=== PATIENT | female | born 1955 | race Hispanic/Latino ===

== ENCOUNTER → 2017-09-14 | Outpatient (CLI) | payer OTHER ==
[~2017-09-14] MED LIST: ALPR2TAB7 PO; ATOR40TA71 PO; CROM40SP12 NS; EZET10TA26 PO; GABA-318 PO; LISI1TAB9 PO; LORA10CA9 PO; MECL-111 PO; METO-391 PO; OXYB10TA4 PO; PARO-37 PO; TRAM50TA4 PO; VITA400C70 PO
== END | disposition home or self-care (01) ==
LOC: SHCH 09:11
PROVIDERS: ATTEND Internal Medicine Cardiovascular Disease
DX: R07.9 Chest pain, unspecified (principal)
CPT/HCPCS: 93306

== ENCOUNTER → 2017-09-19 | Outpatient (CLI) | payer OTHER ==
[~2017-09-19] MED LIST changes: +REGADENOSON 0.4 MG/5 ML PF SYG IVP SCH
== END | disposition home or self-care (01) ==
LOC: SHCH 09:21
PROVIDERS: ATTEND Internal Medicine Cardiovascular Disease
DX: R07.9 Chest pain, unspecified (principal); R05 Cough
CPT/HCPCS: 78452; 93017; 96374; A9500 ×2; J2785

== ENCOUNTER → 2017-09-27 | Outpatient (CLI) | payer OTHER ==
[~2017-09-27] MED LIST changes: -REGADENOSON 0.4 MG/5 ML PF SYG IVP SCH
== END | disposition home or self-care (01) ==
LOC: SHCH 14:06
PROVIDERS: ATTEND Internal Medicine Cardiovascular Disease
DX: R09.89 Other specified symptoms and signs involving the circulatory and respiratory systems (principal)
CPT/HCPCS: 93880

== ENCOUNTER 2018-02-19 12:15 | Emergency (ER) | payer OTHER ==
[2018-02-19 12:44] LABS: APPEARANCE,URINE Clear (CLEAR); BILIRUBIN,URINE Negative (NEGATIVE); COLOR,URINE Yellow (YELLOW); GLUCOSE, URINE (UA) Negative (NEGATIVE); KETONES,URINE Negative (NEGATIVE); LEUKOCYTE ESTERASE ,URINE Negative (NEGATIVE); NITRATE,URINE Negative (NEGATIVE); OCCULT BLOOD,URINE Negative (NEGATIVE); PROTEIN,URINE Negative (NEGATIVE); UROBILINOGEN,URINE 0.2 mg/dL (0.2-1.0)
[2018-02-19] MEDS ORDERED: DIPHENHYDRAMINE HCL 25 MG CAPSULE ONE (12:47)
[2018-02-19 12:52] LABS: AMPHET/METH SCREEN,URINE NEGATIVE (NEGATIVE); BARBITURATE SCREEN, URINE NEGATIVE (NEGATIVE); BENZODIAZEPINES SCREEN,URINE POSITIVE (NEGATIVE); CANNABINOID SCREEN,URINE NEGATIVE (NEGATIVE); COCAINE SCREEN,URINE NEGATIVE (NEGATIVE); OPIATE SCREEN,URINE NEGATIVE (NEGATIVE); PHENCYCLIDINE SCREEN,URINE NEGATIVE (NEGATIVE)
== END 2018-02-19 15:34 | disposition home or self-care (01) ==
LOC: EDH 12:15
DX: F41.1 Generalized anxiety disorder (principal); I10 Essential (primary) hypertension; M81.0 Age-related osteoporosis without current pathological fracture; Z79.899 Other long term (current) drug therapy
CPT/HCPCS: 80305; 81003; 99284; Q0163

== ENCOUNTER 2019-03-03 04:14 | Emergency (ER) | payer OTHER ==
[~2019-03-03 04:14] MED LIST changes: -EZET10TA26 PO; +EZET10TA48 PO; -GABA-318 PO; +GABA600T10 PO
[2019-03-03 04:46] LABS: BASOPHILS % (AUTO) 0.3 % (0.0-5.0); EOSINOPHILS % (AUTO) 3.4 % (0.0-8.0); HEMATOCRIT 36.8 % (36-48); LYMPHOCYTES % (AUTO) 9.8 % (21.0-51.0); MEAN CORPUSCULAR HEMOGLOBIN 29.1 pg (27.0-33.0); MEAN CORPUSCULAR HGB CONC 33.3 g/dL (32.0-36.0); MEAN CORPUSCULAR VOLUME 87.5 fL (79-99); NEUTROPHILS % (AUTO) 80.5 % (40.0-77.0); PLATELET COUNT (AUTO) 244 K/uL (130-400); RED BLOOD CELL COUNT(AUTO) 4.21 MIL/uL (4.00-5.50); WHITE BLOOD COUNT (AUTO) 12.4 K/uL (4.8-10.8)
[2019-03-03 04:59] LABS: CREATININE 0.6 mg/dL (0.5-1.5)
[2019-03-03 05:04] LABS: ALBUMIN 3.3 g/dL (3.5-5.0); BILIRUBIN,TOTAL 0.3 mg/dL (0.2-1.0); TOTAL PROTEIN, SERUM 6.8 g/dL (6.0-8.3)
[2019-03-03 05:14] LABS: APPEARANCE,URINE Clear (CLEAR); BILIRUBIN,URINE Negative (NEGATIVE); COLOR,URINE Yellow (YELLOW); GLUCOSE, URINE (UA) Negative (NEGATIVE); KETONES,URINE Trace mg/dL (NEGATIVE); LEUKOCYTE ESTERASE ,URINE Trace (NEGATIVE); NITRATE,URINE Negative (NEGATIVE); OCCULT BLOOD,URINE Negative (NEGATIVE); PH,URINE 8.5 (5.0-8.0); PROTEIN,URINE Negative (NEGATIVE)
[2019-03-03 05:44] LABS: BACTERIA,URINE Rare /HPF (None Seen); RBC,URINE 0-1 /HPF (0-1); SQUAMOUS EPITHELIAL CELL,UR 0-2 /HPF (0-2)
[2019-03-03] MEDS ORDERED: DEXAMETHASONE SOD PHOSPHATE 4 MG/ML 1ML VIAL ONE (06:07)
[2019-03-03] MEDS ORDERED: KETOROLAC TROMETHAMINE 30MG/ML ONE (06:07)
== END 2019-03-03 07:02 | disposition home or self-care (01) ==
LOC: EDH 04:14
DX: M13.88 Other specified arthritis, other site (principal); M25.50 Pain in unspecified joint; I10 Essential (primary) hypertension
CPT/HCPCS: 36415; 80053; 81001; 85025; 85651; 86140; 96374; 96375; 99284; J1100; J1885

== ENCOUNTER → 2019-11-08 | Outpatient (CLI) | payer OTHER ==
[~2019-11-08] MED LIST changes: +LISI1TAB32 PO; -LISI1TAB9 PO; -MECL-111 PO; +MECL-160 PO; +VITA-164 PO; -VITA400C70 PO
== END | disposition home or self-care (01) ==
LOC: RAH 09:42
PROVIDERS: ATTEND Obstetrics & Gynecology
DX: Z12.31 Encounter for screening mammogram for malignant neoplasm of breast (principal)
CPT/HCPCS: 77067

== ENCOUNTER 2020-01-23 17:23 | Emergency (ER) | payer OTHER ==
[2020-01-23] MEDS ORDERED: ASPIRIN 325 MG TABLET ONE (17:52)
[2020-01-23 18:07] LABS: BASOPHILS % (AUTO) 0.3 % (0.0-5.0); EOSINOPHILS % (AUTO) 2.8 % (0.0-8.0); LYMPHOCYTES % (AUTO) 31.3 % (21.0-51.0); MEAN CORPUSCULAR HEMOGLOBIN 28.9 pg (27.0-33.0); MEAN CORPUSCULAR HGB CONC 32.5 g/dL (32.0-36.0); MEAN CORPUSCULAR VOLUME 88.9 fL (79-99); MONOCYTES % (AUTO) 8.7 % (3.0-13.0); NEUTROPHILS % (AUTO) 56.7 % (40.0-77.0); PLATELET COUNT (AUTO) 169 K/uL (130-400); RED BLOOD CELL COUNT(AUTO) 4.05 MIL/uL (4.00-5.50); RED CELL DISTRIBUTION WIDTH 13.7 % (11.0-15.5)
[2020-01-23 18:24] LABS: CREATININE 0.6 mg/dL (0.5-1.5); POTASSIUM 3.5 mmol/L (3.5-5.1)
[2020-01-23 18:25] LABS: INR 0.95 (0.85-1.15); PARTIAL THROMBOPLASTIN TIME 28.9 SEC (26.3-35.5); PROTHROMBIN TIME 10.3 SEC (9.6-11.6)
[2020-01-23 18:33] LABS: ALBUMIN 3.5 g/dL (3.5-5.0); BILIRUBIN,TOTAL 0.2 mg/dL (0.2-1.0); TOTAL PROTEIN, SERUM 6.5 g/dL (6.0-8.3)
[2020-01-23 18:38] LABS: LACTATE DEHYDROGENASE 209 U/L (81-234)
[2020-01-23 18:39] LABS: CRP QUANTITATIVE < 2.00 mg/L (0.00-9.0)
[2020-01-23 19:14] LABS: APPEARANCE,URINE Clear (CLEAR); BILIRUBIN,URINE Negative (NEGATIVE); COLOR,URINE Yellow (YELLOW); GLUCOSE, URINE (UA) Negative (NEGATIVE); KETONES,URINE Negative (NEGATIVE); LEUKOCYTE ESTERASE ,URINE Negative (NEGATIVE); NITRATE,URINE Negative (NEGATIVE); OCCULT BLOOD,URINE Negative (NEGATIVE); PH,URINE 7.5 (5.0-8.0); PROTEIN,URINE Negative (NEGATIVE); UROBILINOGEN,URINE 0.2 mg/dL (0.2-1.0)
[2020-01-23] MEDS ORDERED: IOHEXOL-350 75 ML VIAL IV ONE (19:50)
== END 2020-01-23 21:50 | disposition home or self-care (01) ==
LOC: EDH 17:23
DX: R07.89 Other chest pain (principal); M79.10 Myalgia, unspecified site; R06.02 Shortness of breath; R11.0 Nausea; I10 Essential (primary) hypertension; M81.0 Age-related osteoporosis without current pathological fracture
CPT/HCPCS: 36415; 71045; 71275; 80053; 81003; 82550; 82728; 83605; 83615; 84484; 85025; 85378; 85610; 85730; 86140; 87040 ×2; 87633; 87804 ×2; 93005; 99291; Q9967; 99292

== ENCOUNTER 2020-02-18 17:28 | Emergency (ER) | payer OTHER | END 2020-02-18 18:38 | disposition home or self-care (01) | LOC: EDH 17:28 | DX: M79.10 Myalgia, unspecified site (principal); R09.81 Nasal congestion; I10 Essential (primary) hypertension; M81.0 Age-related osteoporosis without current pathological fracture | CPT/HCPCS: 87804 ==

== ENCOUNTER 2020-05-02 21:31 | Emergency (ER) | payer OTHER ==
[2020-05-02] MEDS ORDERED: KETOROLAC TROMETHAMINE 30MG/ML IV ONE (21:32)
[2020-05-02] MEDS ORDERED: SODIUM CHLORIDE 0.9% 500ML 500 ML IV ONE (21:32)
[2020-05-02 22:25] LABS: BASOPHILS % (AUTO) 0.4 % (0.0-5.0); EOSINOPHILS % (AUTO) 2.5 % (0.0-8.0); HEMATOCRIT 41.1 % (36-48); LYMPHOCYTES % (AUTO) 28.2 % (21.0-51.0); MEAN CORPUSCULAR HEMOGLOBIN 29.2 pg (27.0-33.0); MEAN CORPUSCULAR HGB CONC 32.1 g/dL (32.0-36.0); MEAN CORPUSCULAR VOLUME 90.9 fL (79-99); MONOCYTES % (AUTO) 5.9 % (3.0-13.0); NEUTROPHILS % (AUTO) 62.8 % (40.0-77.0); PLATELET COUNT (AUTO) 188 K/uL (130-400); RED BLOOD CELL COUNT(AUTO) 4.52 MIL/uL (4.00-5.50); WHITE BLOOD COUNT (AUTO) 8.1 K/uL (4.8-10.8)
[2020-05-02 22:26] LABS: APPEARANCE,URINE Clear (CLEAR); BILIRUBIN,URINE Negative (NEGATIVE); COLOR,URINE Yellow (YELLOW); GLUCOSE, URINE (UA) Negative (NEGATIVE); KETONES,URINE Negative (NEGATIVE); LEUKOCYTE ESTERASE ,URINE Negative (NEGATIVE); NITRATE,URINE Negative (NEGATIVE); OCCULT BLOOD,URINE Negative (NEGATIVE); PH,URINE 6.5 (5.0-8.0); PROTEIN,URINE Negative (NEGATIVE); UROBILINOGEN,URINE 0.2 mg/dL (0.2-1.0)
[2020-05-02 22:43] LABS: CREATININE 0.7 mg/dL (0.5-1.5); POTASSIUM 4.3 mmol/L (3.5-5.1)
[2020-05-02 22:48] LABS: ALBUMIN 3.8 g/dL (3.5-5.0); BILIRUBIN,TOTAL 0.4 mg/dL (0.2-1.0); TOTAL PROTEIN, SERUM 7.1 g/dL (6.0-8.3)
== END 2020-05-03 00:01 | disposition home or self-care (01) ==
LOC: EDH 21:31
DX: M79.10 Myalgia, unspecified site (principal); I10 Essential (primary) hypertension; M19.90 Unspecified osteoarthritis, unspecified site; Z90.49 Acquired absence of other specified parts of digestive tract
CPT/HCPCS: 36415; 80053; 81003; 85025; 96374; 99283; J1885; J7040; 96361

== ENCOUNTER 2020-06-01 20:07 | Emergency (ER) | payer OTHER ==
[2020-06-01 20:44] LABS: BASOPHILS % (AUTO) 0.6 % (0.0-5.0); EOSINOPHILS % (AUTO) 2.4 % (0.0-8.0); HEMATOCRIT 41.5 % (36-48); LYMPHOCYTES % (AUTO) 44.1 % (21.0-51.0); MEAN CORPUSCULAR HEMOGLOBIN 29.4 pg (27.0-33.0); MEAN CORPUSCULAR HGB CONC 32.8 g/dL (32.0-36.0); MEAN CORPUSCULAR VOLUME 89.8 fL (79-99); MONOCYTES % (AUTO) 6.7 % (3.0-13.0); NEUTROPHILS % (AUTO) 45.9 % (40.0-77.0); PLATELET COUNT (AUTO) 241 K/uL (130-400); RED BLOOD CELL COUNT(AUTO) 4.62 MIL/uL (4.00-5.50); RED CELL DISTRIBUTION WIDTH 12.9 % (11.0-15.5); WHITE BLOOD COUNT (AUTO) 7.9 K/uL (4.8-10.8)
[2020-06-01 20:48] LABS: APPEARANCE,URINE Clear (CLEAR); BILIRUBIN,URINE Negative (NEGATIVE); COLOR,URINE Dark Yellow (YELLOW); GLUCOSE, URINE (UA) Negative (NEGATIVE); KETONES,URINE Trace mg/dL (NEGATIVE); LEUKOCYTE ESTERASE ,URINE Trace (NEGATIVE); NITRATE,URINE Negative (NEGATIVE); OCCULT BLOOD,URINE Negative (NEGATIVE); PH,URINE 5.5 (5.0-8.0); PROTEIN,URINE Negative (NEGATIVE)
[2020-06-01 20:53] LABS: INR 0.95 (0.85-1.15); PARTIAL THROMBOPLASTIN TIME 26.8 SEC (26.3-35.5); PROTHROMBIN TIME 10.3 SEC (9.6-11.6)
[2020-06-01 20:55] LABS: CREATININE 0.8 mg/dL (0.5-1.5); POTASSIUM 3.7 mmol/L (3.5-5.1)
[2020-06-01 21:00] LABS: BILIRUBIN,TOTAL 0.1 mg/dL (0.2-1.0); TOTAL PROTEIN, SERUM 7.4 g/dL (6.0-8.3)
[2020-06-01 21:20] LABS: BACTERIA,URINE Few /HPF (None Seen); RBC,URINE 0-1 /HPF (0-1)
[2020-06-01 21:21] LABS: MUCUS,URINE Few LPF (None Seen); SQUAMOUS EPITHELIAL CELL,UR Rare /HPF (0-2)
== END 2020-06-01 23:23 | disposition home or self-care (01) ==
LOC: EDH 20:07
DX: R10.2 Pelvic and perineal pain (principal); R30.0 Dysuria; R11.0 Nausea; I10 Essential (primary) hypertension; M81.0 Age-related osteoporosis without current pathological fracture; M19.90 Unspecified osteoarthritis, unspecified site; Z90.710 Acquired absence of both cervix and uterus
CPT/HCPCS: 36415; 76770; 80053; 81001; 82550; 83605; 84484; 85025; 85610; 85730

== ENCOUNTER 2020-11-18 09:26 | Emergency (ER) | payer OTHER ==
[~2020-11-18 09:26] MED LIST changes: -LISI1TAB32 PO; +LISI1TAB49 PO
[2020-11-18 09:45] LABS: APPEARANCE,URINE Clear (CLEAR); BILIRUBIN,URINE Negative (NEGATIVE); COLOR,URINE Dark Yellow (YELLOW); GLUCOSE, URINE (UA) Negative (NEGATIVE); KETONES,URINE Negative (NEGATIVE); LEUKOCYTE ESTERASE ,URINE Trace (NEGATIVE); NITRATE,URINE Negative (NEGATIVE); OCCULT BLOOD,URINE Negative (NEGATIVE); PH,URINE 6.5 (5.0-8.0); PROTEIN,URINE Negative (NEGATIVE)
[2020-11-18 10:01] LABS: BASOPHILS % (AUTO) 0.7 % (0.0-5.0); EOSINOPHILS % (AUTO) 1.4 % (0.0-8.0); HEMATOCRIT 42.8 % (36-48); LYMPHOCYTES % (AUTO) 31.8 % (21.0-51.0); MEAN CORPUSCULAR HEMOGLOBIN 28.2 pg (27.0-33.0); MEAN CORPUSCULAR VOLUME 88.1 fL (79-99); MONOCYTES % (AUTO) 4.3 % (3.0-13.0); NEUTROPHILS % (AUTO) 61.5 % (40.0-77.0); PLATELET COUNT (AUTO) 211 K/uL (130-400); RED BLOOD CELL COUNT(AUTO) 4.86 MIL/uL (4.00-5.50); RED CELL DISTRIBUTION WIDTH 12.7 % (11.0-15.5); WHITE BLOOD COUNT (AUTO) 5.8 K/uL (4.8-10.8)
[2020-11-18 10:02] LABS: BACTERIA,URINE Few /HPF (None Seen); RBC,URINE 0-1 /HPF (0-1); WBC,URINE 0-1 /HPF (0-1)
[2020-11-18 10:14] LABS: CREATININE 0.7 mg/dL (0.5-1.5); POTASSIUM 3.4 mmol/L (3.5-5.1)
[2020-11-18 10:19] LABS: ALBUMIN 3.9 g/dL (3.5-5.0); BILIRUBIN,TOTAL 0.5 mg/dL (0.2-1.0); TOTAL PROTEIN, SERUM 7.3 g/dL (6.0-8.3)
[2020-11-18 13:47] LABS: AMPHET/METH SCREEN,URINE NEGATIVE (NEGATIVE); BARBITURATE SCREEN, URINE NEGATIVE (NEGATIVE); BENZODIAZEPINES SCREEN,URINE POSITIVE (NEGATIVE); CANNABINOID SCREEN,URINE NEGATIVE (NEGATIVE); COCAINE SCREEN,URINE NEGATIVE (NEGATIVE); OPIATE SCREEN,URINE NEGATIVE (NEGATIVE); PHENCYCLIDINE SCREEN,URINE NEGATIVE (NEGATIVE)
== END 2020-11-18 12:57 | disposition home or self-care (01) ==
LOC: EDH 09:26
DX: F41.9 Anxiety disorder, unspecified (principal); F32.9 Major depressive disorder, single episode, unspecified; Z20.822 Contact with and (suspected) exposure to COVID-19; I10 Essential (primary) hypertension; M19.90 Unspecified osteoarthritis, unspecified site; M81.0 Age-related osteoporosis without current pathological fracture; Z90.710 Acquired absence of both cervix and uterus; Z98.890 Other specified postprocedural states
CPT/HCPCS: 36415; 71045; 80053; 80305; 81001; 85025; 87426; 93005; 99285; U0003

== ENCOUNTER 2021-08-18 15:49 | Emergency (ER) | payer OTHER ==
[~2021-08-18] VITALS: Ht 152.4 cm; Wt 70.3 kg
[2021-08-18 16:58] LABS: APPEARANCE,URINE Clear (CLEAR); BILIRUBIN,URINE Negative (NEGATIVE); COLOR,URINE Yellow (YELLOW); GLUCOSE, URINE (UA) Negative (NEGATIVE); KETONES,URINE Negative (NEGATIVE); LEUKOCYTE ESTERASE ,URINE Negative (NEGATIVE); NITRATE,URINE Negative (NEGATIVE); OCCULT BLOOD,URINE Negative (NEGATIVE); PH,URINE 7.5 (5.0-8.0); PROTEIN,URINE Negative (NEGATIVE)
[2021-08-18] MEDS ORDERED: METOPROLOL TARTRATE 1 MG/ML 5ML VIAL IV SCH (17:00)
[2021-08-18] MEDS ORDERED: LORAZEPAM 2 MG/ML 1 ML VIAL IVP SCH (17:00)
[2021-08-18 17:10] LABS: BASOPHILS % (AUTO) 0.5 % (0.0-5.0); EOSINOPHILS % (AUTO) 3.2 % (0.0-8.0); HEMATOCRIT 38.7 % (36-48); LYMPHOCYTES % (AUTO) 29.1 % (21.0-51.0); MEAN CORPUSCULAR HEMOGLOBIN 28.1 pg (27.0-33.0); MEAN CORPUSCULAR HGB CONC 32.6 g/dL (32.0-36.0); MEAN CORPUSCULAR VOLUME 86.4 fL (79-99); MONOCYTES % (AUTO) 8.2 % (3.0-13.0); NEUTROPHILS % (AUTO) 58.6 % (40.0-77.0); PLATELET COUNT (AUTO) 171 K/uL (130-400); RED BLOOD CELL COUNT(AUTO) 4.48 MIL/uL (4.00-5.50); RED CELL DISTRIBUTION WIDTH 13.2 % (11.0-15.5); WHITE BLOOD COUNT (AUTO) 7.6 K/uL (4.8-10.8)
[2021-08-18 17:28] LABS: CREATININE 0.7 mg/dL (0.5-1.5); POTASSIUM 4.5 mmol/L (3.5-5.1)
[2021-08-18 17:33] LABS: ALBUMIN 4.2 g/dL (3.5-5.0); BILIRUBIN,TOTAL 0.4 mg/dL (0.2-1.0); TOTAL PROTEIN, SERUM 7.4 g/dL (6.0-8.3)
[2021-08-18] MEDS ORDERED: LORA-192 PO (18:51)
[2021-08-18 19:05] VITALS: BP 133/76
== END 2021-08-18 19:18 | disposition home or self-care (01) ==
LOC: EDH 15:49
DX: I10 Essential (primary) hypertension (principal); F41.0 Panic disorder [episodic paroxysmal anxiety]; Z79.899 Other long term (current) drug therapy; Z85.42 Personal history of malignant neoplasm of other parts of uterus
CPT/HCPCS: 36415; 71045; 80053; 81003; 84443; 84484; 85025; 93005; 96374; 96375; 99285; J2060; J3490

== ENCOUNTER 2021-09-06 17:41 | Emergency (ER) | payer OTHER ==
[~2021-09-06] VITALS: Ht 160 cm; Wt 70.8 kg
[~2021-09-06 17:41] MED LIST changes: +LORA-192 PO
[2021-09-06 18:10] LABS: APPEARANCE,URINE Clear (CLEAR); BILIRUBIN,URINE Negative (NEGATIVE); COLOR,URINE Yellow (YELLOW); GLUCOSE, URINE (UA) Negative (NEGATIVE); KETONES,URINE Negative (NEGATIVE); LEUKOCYTE ESTERASE ,URINE Negative (NEGATIVE); NITRATE,URINE Negative (NEGATIVE); OCCULT BLOOD,URINE Trace (NEGATIVE); PH,URINE 7.5 (5.0-8.0); PROTEIN,URINE Negative (NEGATIVE); UROBILINOGEN,URINE 0.2 mg/dL (0.2-1.0)
[2021-09-06 18:12] VITALS: BP_SYST 146
[2021-09-06 18:17] LABS: AMPHET/METH SCREEN,URINE NEGATIVE (NEGATIVE); BARBITURATE SCREEN, URINE NEGATIVE (NEGATIVE); BENZODIAZEPINES SCREEN,URINE POSITIVE (NEGATIVE); CANNABINOID SCREEN,URINE NEGATIVE (NEGATIVE); COCAINE SCREEN,URINE NEGATIVE (NEGATIVE); OPIATE SCREEN,URINE NEGATIVE (NEGATIVE); PHENCYCLIDINE SCREEN,URINE NEGATIVE (NEGATIVE)
[2021-09-06 18:29] LABS: BASOPHILS % (AUTO) 0.7 % (0.0-5.0); EOSINOPHILS % (AUTO) 2.8 % (0.0-8.0); HEMATOCRIT 37.9 % (36-48); LYMPHOCYTES % (AUTO) 32.1 % (21.0-51.0); MEAN CORPUSCULAR HEMOGLOBIN 28.3 pg (27.0-33.0); MEAN CORPUSCULAR HGB CONC 31.7 g/dL (32.0-36.0); MEAN CORPUSCULAR VOLUME 89.4 fL (79-99); MONOCYTES % (AUTO) 8.5 % (3.0-13.0); NEUTROPHILS % (AUTO) 55.6 % (40.0-77.0); PLATELET COUNT (AUTO) 205 K/uL (130-400); RED BLOOD CELL COUNT(AUTO) 4.24 MIL/uL (4.00-5.50); RED CELL DISTRIBUTION WIDTH 13.9 % (11.0-15.5); WHITE BLOOD COUNT (AUTO) 6.1 K/uL (4.8-10.8)
[2021-09-06] MEDS ORDERED: KETOROLAC 15MG/ML VIAL (15MG/ML) IV ONE (18:30)
[2021-09-06] MEDS ORDERED: ACETAMINOPHEN 500 MG TABLET PO ONE (18:30)
[2021-09-06 18:41] LABS: CREATININE 0.6 mg/dL (0.5-1.5)
[2021-09-06 18:46] LABS: BILIRUBIN,TOTAL 0.4 mg/dL (0.2-1.0); MAGNESIUM 2.2 mg/dL (1.80-2.40); TOTAL PROTEIN, SERUM 7.3 g/dL (6.0-8.3)
[2021-09-06 18:48] LABS: PROTHROMBIN TIME 10.9 SEC (9.6-11.6)
[2021-09-06 18:49] LABS: BACTERIA,URINE Rare /HPF (None Seen); RBC,URINE 0-1 /HPF (0-1); SQUAMOUS EPITHELIAL CELL,UR Rare /HPF (0-2); WBC,URINE 0-1 /HPF (0-1)
[2021-09-06 18:50] LABS: PARTIAL THROMBOPLASTIN TIME 30.5 SEC (26.3-35.5)
[2021-09-06 18:56] LABS: B-TYPE NATRIURETIC PEPTIDE 254 pg/mL (0-100)
[2021-09-06 21:29] VITALS: BP_DIAS 59
[2021-09-06] MEDS ORDERED: TRAM50TA4 PO (21:36)
== END 2021-09-06 22:37 | disposition home or self-care (01) ==
LOC: EDH 17:41
DX: B34.9 Viral infection, unspecified (principal); M25.50 Pain in unspecified joint; Z20.822 Contact with and (suspected) exposure to COVID-19; E03.9 Hypothyroidism, unspecified; E11.9 Type 2 diabetes mellitus without complications; F32.A Depression, unspecified; F41.9 Anxiety disorder, unspecified; I10 Essential (primary) hypertension; J45.909 Unspecified asthma, uncomplicated; K21.9 Gastro-esophageal reflux disease without esophagitis; M81.0 Age-related osteoporosis without current pathological fracture; Z79.1 Long term (current) use of non-steroidal anti-inflammatories (NSAID); Z79.899 Other long term (current) drug therapy
CPT/HCPCS: 36415; 71045; 80053; 80305; 81001; 82550; 83735; 83880; 84145; 84484; 85025; 85610; 85730; 87040 ×2; 87088; 87635; 87804 ×2; 96374; 99284; C9803; J1885

== ENCOUNTER 2022-07-26 04:01 | Emergency (ER) | payer OTHER ==
[~2022-07-26] VITALS: Ht 157.5 cm; Wt 76.2 kg
[~2022-07-26 04:01] MED LIST changes: +PANT40TA55 PO; -VITA-164 PO; +VITA-348 PO
[2022-07-26] MEDS ORDERED: ONDA4TAB10 PO (04:24)
[2022-07-26] MEDS ORDERED: ACET-66 PO (04:24)
[2022-07-26] MEDS ORDERED: LOPE2CAP PO (04:24)
[2022-07-26] MEDS ORDERED: LEVOFLOXACIN 750 MG TABLET PO SCH (04:30)
[2022-07-26] MEDS ORDERED: ONDANSETRON ODT 4MG TAB SL ONE (04:30)
[2022-07-26] MEDS ORDERED: LOPERAMIDE HCL 2 MG CAP PO ONE (04:30)
[2022-07-26 04:52] VITALS: BP 119/75
== END 2022-07-26 05:12 | disposition home or self-care (01) ==
LOC: EDH 04:01
DX: K52.9 Noninfective gastroenteritis and colitis, unspecified (principal); E11.9 Type 2 diabetes mellitus without complications; I10 Essential (primary) hypertension; F41.9 Anxiety disorder, unspecified; Z90.710 Acquired absence of both cervix and uterus; Z79.899 Other long term (current) drug therapy

== ENCOUNTER 2022-07-30 22:58 | Emergency (ER) | payer OTHER ==
[~2022-07-30] VITALS: Ht 149.9 cm; Wt 70.3 kg
[~2022-07-30 22:58] MED LIST changes: +ACET-66 PO; +LOPE2CAP PO; +ONDA4TAB10 PO
[2022-07-30] MEDS ORDERED: IBUPROFEN 800 MG TAB PO ONE (23:30)
[2022-07-30 23:46] LABS: BASOPHILS % (AUTO) 0.1 % (0.0-5.0); EOSINOPHILS % (AUTO) 0.5 % (0.0-8.0); HEMATOCRIT 34.3 % (36-48); LYMPHOCYTES % (AUTO) 18.6 % (21.0-51.0); MEAN CORPUSCULAR HEMOGLOBIN 29.2 pg (27.0-33.0); MEAN CORPUSCULAR HGB CONC 32.7 g/dL (32.0-36.0); MEAN CORPUSCULAR VOLUME 89.3 fL (79-99); MONOCYTES % (AUTO) 5.6 % (3.0-13.0); NEUTROPHILS % (AUTO) 74.8 % (40.0-77.0); PLATELET COUNT (AUTO) 216 K/uL (130-400); RED BLOOD CELL COUNT(AUTO) 3.84 MIL/uL (4.00-5.50); RED CELL DISTRIBUTION WIDTH 13.4 % (11.0-15.5); WHITE BLOOD COUNT (AUTO) 8.2 K/uL (4.8-10.8)
[2022-07-30 23:54] LABS: CARBON DIOXIDE 26 mmol/L (21-32); CHLORIDE 100 mmol/L (101-111); CREATININE 0.9 mg/dL (0.5-1.5); GLOMERULAR FILTR. RATE CALC 67 mL/min (>60); GLUCOSE,RANDOM 100 mg/dL (70-105); POTASSIUM 3.9 mmol/L (3.5-5.1); SODIUM SERUM 134 mmol/L (136-145); UREA NITROGEN, BLOOD 14 mg/dL (7-18)
[2022-07-30 23:57] LABS: APPEARANCE,URINE CLEAR (CLEAR); BILIRUBIN,URINE NEGATIVE (NEGATIVE); COLOR,URINE LIGHT-ORANGE (YELLOW); GLUCOSE, URINE (UA) NEGATIVE (NEGATIVE); KETONES,URINE NEGATIVE (NEGATIVE); LEUKOCYTE ESTERASE ,URINE NEGATIVE Leu/uL (NEGATIVE); NITRATE,URINE NEGATIVE (NEGATIVE); OCCULT BLOOD,URINE NEGATIVE (NEGATIVE); PH,URINE 6.5 (5.0-8.0); PROTEIN,URINE NEGATIVE (NEGATIVE); UROBILINOGEN,URINE 0.2 mg/dL (0.2-1.0)
[2022-07-30 23:58] LABS: ALANINE AMINOTRANSFERASE 32 U/L (12-78); ALBUMIN 3.3 g/dL (3.5-5.0); ASPARTATE AMINOTRANSFERASE 33 U/L (10-37)
[2022-07-31 00:01] LABS: PROTHROMBIN TIME 10.9 SEC (9.6-11.6)
[2022-07-31 00:02] LABS: PARTIAL THROMBOPLASTIN TIME 28.8 SEC (26.3-35.5)
[2022-07-31 00:04] LABS: CRP QUANTITATIVE < 2.00 mg/L (0.00-9.0)
[2022-07-31 00:10] VITALS: BP 113/75
== END 2022-07-31 00:29 | disposition home or self-care (01) ==
LOC: EDH 22:58
DX: M25.571 Pain in right ankle and joints of right foot (principal); M25.572 Pain in left ankle and joints of left foot; E11.9 Type 2 diabetes mellitus without complications; I10 Essential (primary) hypertension; Z79.899 Other long term (current) drug therapy; Z98.890 Other specified postprocedural states
CPT/HCPCS: 36415; 73610; 80053; 81003; 85025; 85610; 85730; 86140

== ENCOUNTER 2024-01-01 21:27 | Emergency (ER) | payer OTHER ==
[~2024-01-01] VITALS: Ht 152.4 cm; Wt 63.5 kg
[~2024-01-01 21:27] MED LIST changes: -MECL-160 PO; +MECL-302 PO
[2024-01-02 00:05] VITALS: BP 163/93; PULSE 104; RESP 18
== END 2024-01-02 00:57 | disposition home or self-care (01) ==
LOC: EDH 21:27
DX: G89.29 Other chronic pain (principal); M54.50 Low back pain, unspecified; E11.9 Type 2 diabetes mellitus without complications; I10 Essential (primary) hypertension; Z79.899 Other long term (current) drug therapy; Z98.890 Other specified postprocedural states

== ENCOUNTER 2024-08-11 07:51 | Emergency (ER) | payer OTHER ==
[~2024-08-11] VITALS: Ht 149.9 cm; Wt 56.2 kg
[~2024-08-11 07:51] MED LIST changes: +GABA-1405 PO; -GABA600T10 PO; +ONDA-243 PO; -ONDA4TAB10 PO; +SULF1TAB42 PO
[2024-08-11 08:25] VITALS: TEMP 99.1
--- NOTE | 2024-08-11 08:39 | ERN ---
General Chief Complaint: Insomnia Stated Complaint: INSOMNIA Time Seen by MD: 07:54 History of Present Illness Initial Comments 68-year-old female who presents for insomnia and feeling that she is going to . Patient reports that she has been unable to sleep for the last six months to a year. She has been on Ambien and alprazolam. She takes multiple psychiatric medications. She ran out of Ambien about a month ago. She has a very difficult historian, it is difficult to get a clear history from her. There has been is at the bedside but does not take care of her primary care, and he is unsure of her medical history and what medicines she should be taking. They report that she is here because she has been unable to sleep for the last few nights. She denies any fevers or pains. She denies any systemic symptoms. Allergies: Coded Allergies: No Known Drug Allergies (Unverified Allergy, Unknown, 05/17/17) Home Meds Active Scripts Sulfamethoxazole/Trimethoprim (Bactrim Ds Tablet) 800 Mg-160 Mg Tablet, 1 TAB PO BID for 7 Days, #14 TAB Prov:CHAD DEL REAL MD 06/05/24 Ondansetron (Ondansetron Odt) 4 Mg Tab.rapdis, 4 MG PO TID for NAUSEA, #15 TAB Prov:NADINE MANUEL MD 07/26/22 Loperamide HCl (Loperamide) 2 Mg Capsule, 2 MG PO QID for LOOSE STOOL, #30 CAP Prov:NADINE MANUEL MD 07/26/22 Acetaminophen (Acetaminophen) 500 Mg Tablet, 1000 MG PO QID for FEVER, #50 TAB Prov:NADINE MANUEL MD 07/26/22 Pantoprazole Sodium (Protonix) 40 Mg Ectab, 40 MG PO DAILY for 30 Days, #30 TAB.EC Prov:MARCIA BAKER MD 07/25/22 Tramadol Hcl (Tramadol HCl) 50 Mg Tablet, 50 MG PO BID for 5 Days, #10 TAB Prov:ERICA ESTRELLA NP 09/06/21 Lorazepam (Ativan) 1 Mg Tablet, 1 MG PO DAILY for 2 Days, #2 TAB Take one or two as needed qHS Prov:TIESHA CHEEK MD 08/18/21 Reported Medications Cromolyn Sodium (Nasal Allergy [place]) 13 Ml [place].pump, 13 ML NS AM 05/17/17 Vitamin E Mixed (Vitamin E) 400 Unit Capsule, 400 UNIT PO AM, CAP 05/17/17 Tramadol Hcl (Tramadol HCl) 50 Mg Tablet, 50 MG PO Q4HPRN, TAB 05/17/17 Paroxetine HCl (Paroxetine HCl) 20 Mg Tablet, 20 MG PO AM, TAB 05/17/17 Oxybutynin Chloride (Ditropan Xl) 10 Mg Tab.er.24, 10 MG PO AM 05/17/17 Meclizine HCl (Meclizine HCl) 25 Mg Tablet, 25 MG PO TID, TAB 05/17/17 Loratadine (Loratadine) 10 Mg Capsule, 10 MG PO AM, CAP 05/17/17 Lisinopril/Hydrochlorothiazide (Lisinopril-Hctz 10-12.5 mg Tab) 1 Each Tablet, 1 EACH PO AM, TAB 05/17/17 Gabapentin (Gabapentin) 600 Mg Tablet, 600 MG PO TID, TAB 05/17/17 Ezetimibe (Ezetimibe) 10 Mg Tablet, 10 MG PO AM, TAB 05/17/17 Atorvastatin Calcium (Atorvastatin Calcium) 40 Mg Tablet, 40 MG PO AM, TAB 05/17/17 Metoprolol Succinate (Metoprolol Succinate) 50 Mg Tab.er.24h, 50 MG PO AM, TAB 05/17/17 Alprazolam (Alprazolam) 2 Mg Tablet, 2 MG PO BID, TAB 05/17/17 Past Medical History Past Medical History: Depression, Diabetes-Type II, High Cholesterol, Hypertension Medical History Other: uterine ca; poor historian of health Past Surgical History: Other Surgical History Other: BACK SX Family History Family History: Negative Social History Social History: Negative, Lives with family Female( History) History: Not Applicable ROS Dictation CONSTITUTIONAL: No chills, no fever, no weakness, no diaphoresis, no malaise. HEAD/FACE: No signs of trauma. EENT: No eye pain, no blurred vision, no tearing, no double vision, no ear pain, no ear discharge, no nose pain, no nasal congestion, no throat pain, no th roat swelling, no mouth pain. RESPIRATORY: No cough, no orthopnea, no SOB, no stridor, no wheezing. CARDIOVASCULAR: No chest pain, no edema, no palpitations, no syncope. GASTROINTESTINAL/ABDOMINAL: No abdominal pain, no constipation, no diarrhea, no nausea, no vomiting. GENITOURINARY: No abnormal discharge, no dysuria, no frequent urination, no hematuria. No complaints of pain in the genitals. MUSCULOSKELETAL: No back pain, no gout, no joint pain, no joint swelling, no muscle pain, no muscle stiffness, no neck pain. INTEGUMENTARY: No change in color, no change in hair/nails, no dryness, no lesion, no lumps, no rash. NEUROLOGICAL/PSYCH: Insomnia HEMATOLOGIC/LYMPHATIC: Not anemic, no history of blood clots, no apparent bleeding, no bruising, glands not swollen. All Systems Negative, Except as Noted. Physical Exam Physical Exam Dictation VITAL SIGNS: Reviewed. GENERAL APPEARANCE: Alert, oriented x3, no acute distress. HEAD AND FACE: Non-traumatic. EYES: PERRL, pink conjunctivas, eyelid no trauma, anterior chamber clear. EARS: Pinnas intact and no signs of trauma or erythema. Ear canals clear and no discharge. TMs no erythema. NOSE: No discharge, no bleeding. OROPHARYNX: Mouth normal, teeth no caries, tongue pink. Pharynx clear, no erythema. Tonsils no exudates, no abscesses noted. Mucous membrane moist. NECK: Supple, non-tender, no thyromegaly, no masses, no JVD, no bruits. BREAST: Deferred. CHEST: No tenderness, no crepitus, no paradoxical movement, no retractions. LUNGS: Clear, well-ventilated, symmetric, no rales, no wheezing, no rhonchi, no stridor, good breath sounds bilaterally. HEART: Regular rate, regular rhythm, no murmur, no gallops. VASCULAR: No peripheral edema. ABDOMEN: Soft, positive bowel sounds, nondistended, no guarding, nontender, no rebound, no masses no hepatomegaly, no splenomegaly, no Paulino's sign, no hernias. RECTAL: Deferred. GENITAL: Deferred. NEUROLOGICAL: Normal speech, gross motor function intact, gross sensory function intact. Patient appears anxious, she is tangential but directable. Denies SI or HI MUSCULOSKELETAL: Neck nontender, full range of motion, back nontender, full range of motion. EXTREMITIES: Nontender, full range of motion. SKIN: Color pink, dry, no turgor, no rash, no lacerations, no abrasions, no contusions. LYMPHATICS: Deferred. Results Laboratory and Microbiology Lab and Micro Result Laboratory Tests Test 08/11/24 08:20 08/11/24 08:45 08/11/24 08:56 Urine Color YELLOW (YELLOW) Urine Appearance CLEAR (CLEAR) Urine pH 6.0 (5.0-8.0) Urine Specific [place] 1.018 (1.001-1.031) Urine Protein 20 mg/dL (NEGATIVE) H Urine Glucose (UA) NEGATIVE mg/dL (NEGATIVE) Urine Ketones 40 mg/dL (NEGATIVE) H Urine Occult Blood SMALL (NEGATIVE) H Urine Nitrate NEGATIVE (NEGATIVE) Urine Bilirubin NEGATIVE mg/dL (NEGATIVE) Urine Urobilinogen 0.2 mg/dL (0.2-1.0) Urine Leukocyte Esterase 75 [place]/uL (NEGATIVE) H Urine RBC 11-25 /HPF (0-1) H Urine WBC 6-10 /HPF (0-1) H Urine Squamous Epithelial Cells RARE /HPF (0-2) Urine Bacteria FEW /HPF (None Seen) White Blood Count 4.4 K/uL (4.8-10.8) L Red Blood Count 4.74 MIL/uL (4.00-5.50) Hemoglobin 13.3 g/dL (12.0-16.0) Hematocrit 40.0 % (36-48) Mean Corpuscular Volume 84.4 fL (79-99) Mean Corpuscular Hemoglobin 28.1 pg (27.0-33.0) Mean Corpuscular Hemoglobin Concent 33.3 g/dL (32.0-36.0) Red Cell Distribution Width 13.5 % (11.0-15.5) Platelet Count 236 K/uL (130-400) Mean Platelet Volume 10.8 fL (7.5-10.5) H Immature Granulocyte % (Auto) 0.2 % (0-1) Neutrophils (%) (Auto) 53.8 % (40.0-77.0) Lymphocytes (%) (Auto) 39.2 % (21.0-51.0) Monocytes (%) (Auto) 5.4 % (3.0-13.0) Eosinophils (%) (Auto) 0.7 % (0.0-8.0) Basophils (%) (Auto) 0.7 % (0.0-5.0) Neutrophils # (Auto) 2.4 K/uL (1.8-7.7) Lymphocytes # (Auto) 1.7 K/uL (1.0-4.8) Monocytes # (Auto) 0.2 K/uL (0.1-1.0) Eosinophils # (Auto) 0.03 K/uL (0.00-0.70) Basophils # (Auto) 0.03 K/uL (0.00-0.20) Absolute Immature Granulocyte (auto 0.01 K/uL (0-1) Nucleated Red Blood Cells 0.0 % (0.0-0.19) Sodium Level 135 mmol/L (136-145) L Potassium Level 3.3 mmol/L (3.5-5.1) L Chloride Level 102 mmol/L (101-111) Carbon Dioxide Level 23 mmol/L (21-32) Blood Urea Nitrogen 6 mg/dL (7-18) L Creatinine 0.5 mg/dL (0.5-1.0) Glomerular Filtration Rate Calc 102 mL/min (>90) Random Glucose 92 mg/dL (70-105) Total Calcium 9.2 mg/dL (8.5-10.1) Total Creatine Kinase 53 U/L (21-232) # Troponin I High Sensitivity 6.0 ng/L (4-50) Thyroid Stimulating Hormone (TSH) 2.31 uIU/mL (0.36-3.74) Whole Blood Glucose 95 MG/DL (70-110) MDM CC: Insomnia Historian: Patient is is very tangential unable to provide a very clear history. Patient is has been was independent historian who provided much of the history. Comorbidities: Bipolar disorder, insomnia, diabetes, hypertension, dyslipidemia Limitations by social determinants of health: None Vital signs show mild hypertension otherwise unremarkable Clinical exam is unremarkable. No signs of stroke. Patient is tangential in her thought, but very redirectable. GCS 15. Differential diagnosis includes insomnia, medication withdrawal, infection, metabolic derangement, ACS, other. EKG: NSR, rate 69, normal axis, good R-wave progression, intervals are stable Labs independently reviewed and interpreted by me: CBC is normal, metabolic panel normal, CK normal, troponin normal, TSH normal. Urinalysis does show some leuk esterase, we will treat his infection. We will discharge with Macrobid. We will give a prescription for Ambien since the patient appears to have ran out of this. This may be causing her symptoms. She does not want Xanax, but I will not prescribe this at this time she can fol low up with the primary doctor. ED Course Orders Procedure Category Date Status Time Cardiac Panel LAB 08/11/24 Complete 08: Cbc With Differential LAB 08/11/24 Complete 08: Basic Metabolic Panel LAB 08/11/24 Complete 08: Urinalysis Profile LAB 08/11/24 Complete : Thyroid Stimulating LAB 08/11/24 Complete Hormone : 12 Lead Ekg Tracing- EKG 08/11/24 Logged Technical 08:26 Culture Urine CLAU 08/11/24 Logged 08:47 Vital Signs Date Time Temp Pulse Resp B/P (MAP) Pulse Ox O2 Delivery O2 Flow Rate FiO2 08/11/24 08:25 99.1 97 16 157/85 97 Room Air* 0 21 08/11/24 07:52 97.5 98 18 160/98 98 Room Air 0 DX & DISP Disposition: Discharge Departure Impression: Primary Impression: Insomnia Additional Impression: UTI (urinary tract infection) Condition: Stable Scripts Nitrofurantoin/Nitrofuran Mac (Macrobid) 100 Mg Cap 1 CAP PO BID for 5 Days, #10 CAP 0 Refills Prov: THAD GERBER DO 08/11/24 Zolpidem Tartrate (Ambien) 5 Mg Tablet 1 TAB PO HSPRN PRN for sleep for 14 Days, #14 TAB 0 Refills Prov: THAD GERBER DO 08/11/24 Additional Instructions: Your symptoms are consistent with insomnia. This may be due to not taking Ambien. I have given you a prescription for Ambien. Take nightly to help sleep. I have given you two weeks for the prescription. Your blood work (CBC, BNP, CK, TSH, troponin) is unremarkable. Urinalysis does show some bacteria. I have prescribed antibiotics. Take as prescribed. I recommend he follow up with your primary doctor for further treatment and evaluation. Referrals: MARAL DUONG MD (PCP) THAD GERBER DO Aug 11, 2024 08:38
[2024-08-11 08:41] LABS: APPEARANCE,URINE CLEAR (CLEAR); BILIRUBIN,URINE NEGATIVE (NEGATIVE); COLOR,URINE YELLOW (YELLOW); GLUCOSE, URINE (UA) NEGATIVE (NEGATIVE); KETONES,URINE 40 mg/dL (NEGATIVE); LEUKOCYTE ESTERASE ,URINE 75 Leu/uL (NEGATIVE); NITRATE,URINE NEGATIVE (NEGATIVE); OCCULT BLOOD,URINE SMALL (NEGATIVE); PROTEIN,URINE 20 mg/dL (NEGATIVE); UROBILINOGEN,URINE 0.2 mg/dL (0.2-1.0)
[2024-08-11 08:46] LABS: ADD UA MICROSCOPIC YES
[2024-08-11 08:50] LABS: BACTERIA,URINE FEW /HPF (None Seen); MUCUS,URINE FEW LPF (None Seen); SQUAMOUS EPITHELIAL CELL,UR RARE /HPF (0-2)
[2024-08-11 08:52] LABS: BASOPHILS # (AUTO) 0.03 K/uL (0.00-0.20); BASOPHILS % (AUTO) 0.7 % (0.0-5.0); EOSINOPHILS # (AUTO) 0.03 K/uL (0.00-0.70); EOSINOPHILS % (AUTO) 0.7 % (0.0-8.0); IMMATURE GRANULOCYTE ABSOLUTE 0.01 K/uL (0-1); LYMPHOCYTES # (AUTO) 1.7 K/uL (1.0-4.8); LYMPHOCYTES % (AUTO) 39.2 % (21.0-51.0); MEAN CORPUSCULAR HEMOGLOBIN 28.1 pg (27.0-33.0); MEAN CORPUSCULAR HGB CONC 33.3 g/dL (32.0-36.0); MEAN CORPUSCULAR VOLUME 84.4 fL (79-99); MONOCYTES # (AUTO) 0.2 K/uL (0.1-1.0); MONOCYTES % (AUTO) 5.4 % (3.0-13.0); NEUTROPHILS # (AUTO) 2.4 K/uL (1.8-7.7); NEUTROPHILS % (AUTO) 53.8 % (40.0-77.0); PLATELET COUNT (AUTO) 236 K/uL (130-400); RED BLOOD CELL COUNT(AUTO) 4.74 MIL/uL (4.00-5.50); RED CELL DISTRIBUTION WIDTH 13.5 % (11.0-15.5); WHITE BLOOD COUNT (AUTO) 4.4 K/uL (4.8-10.8)
[2024-08-11 09:13] LABS: CREATININE 0.5 mg/dL (0.5-1.0); POTASSIUM 3.3 mmol/L (3.5-5.1)
[2024-08-11 09:27] LABS: THYROID STIMULATING HORMONE 2.31 uIU/mL (0.36-3.74)
[2024-08-11] MEDS ORDERED: MACR100 PO (09:36)
[2024-08-11] MEDS ORDERED: ZOLP5TAB2 PO (09:36)
[2024-08-11 09:44] VITALS: BP 120/77; PULSE 88; RESP 16; O2SAT 99
--- NOTE | 2024-08-12 07:32 | EKG ---
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
== END 2024-08-11 09:57 | disposition home or self-care (01) ==
LOC: EDH 07:51
DX: G47.00 Insomnia, unspecified (principal); N39.0 Urinary tract infection, site not specified; E11.9 Type 2 diabetes mellitus without complications; E78.00 Pure hypercholesterolemia, unspecified; F31.9 Bipolar disorder, unspecified; I10 Essential (primary) hypertension; Z79.899 Other long term (current) drug therapy
CPT/HCPCS: 36415; 80048; 81001; 82550; 82948; 84443; 84484; 85025; 87086; 87186; 93005; 99284

== ENCOUNTER 2024-09-30 07:38 | Emergency (ER) | payer OTHER ==
[~2024-09-30] VITALS: Ht 144.8 cm; Wt 54.4 kg
[~2024-09-30 07:38] MED LIST changes: +MACR100 PO; +ZOLP5TAB2 PO
--- NOTE | 2024-09-30 08:27 | ERN ---
General Chief Complaint: Multiple Complaints Stated Complaint: ANXIETY, INSOMNIA, CHRONIC BACK PAIN Time Seen by MD: 07:51 Time Seen by Midlevel: 07:51 Source: patient History of Present Illness Initial Comments Patient is a 68-year-old female with a history of chronic back pain presenting to the emergency department with multiple complaints. Patient states she was on her way to see her back specialist for a follow up regarding her spine surgery that was performed in January of 2024. She decided to report to the ER with complaints of insomnia for the last several months along with generalized body pain. Patient states she has been taking alprazolam for over 30 years and believes the insomnia is a secondary effect. She reports taking 2 mg and has never increased her dose. Patient states she no longer wants to take this medication because of the way it makes her feel. She has not followed up with her primary care doctor. Patient was able to ambulate into the emergency department. Allergies: Coded Allergies: No Known Drug Allergies (Unverified Allergy, Unknown, 05/17/17) Home Meds Active Scripts Nitrofurantoin/Nitrofuran Mac (Macrobid) 100 Mg Cap, 1 CAP PO BID for 5 Days, #10 CAP 0 Refills Prov:THAD GERBER DO 08/11/24 Zolpidem Tartrate (Ambien) 5 Mg Tablet, 1 TAB PO HSPRN PRN for sleep for 14 Days, #14 TAB 0 Refills Prov:THAD GERBER DO 08/11/24 Sulfamethoxazole/Trimethoprim (Bactrim Ds Tablet) 800 Mg-160 Mg Tablet, 1 TAB PO BID for 7 Days, #14 TAB Prov:CHAD DEL REAL MD 06/05/24 Ondansetron (Ondansetron Odt) 4 Mg Tab.rapdis, 4 MG PO TID for NAUSEA, #15 TAB Prov:NADINE MANUEL MD 07/26/22 Loperamide HCl (Loperamide) 2 Mg Capsule, 2 MG PO QID for LOOSE STOOL, #30 CAP Prov:NADINE MANUEL MD 07/26/22 Acetaminophen (Acetaminophen) 500 Mg Tablet, 1000 MG PO QID for FEVER, #50 TAB Prov:NADINE MANUEL MD 07/26/22 Pantoprazole Sodium (Protonix) 40 Mg Ectab, 40 MG PO DAILY for 30 Days, #30 TAB.EC Prov:MARCIA BAKER MD 07/25/22 Tramadol Hcl (Tramadol HCl) 50 Mg Tablet, 50 MG PO BID for 5 Days, #10 TAB Prov:ERICA ESTRELLA NP 09/06/21 Lorazepam (Ativan) 1 Mg Tablet, 1 MG PO DAILY for 2 Days, #2 TAB Take one or two as needed qHS Prov:TIESHA CHEEK MD 08/18/21 Reported Medications Cromolyn Sodium (Nasal Allergy [place]) 13 Ml [place].pump, 13 ML NS AM 05/17/17 Vitamin E Mixed (Vitamin E) 400 Unit Capsule, 400 UNIT PO AM, CAP 05/17/17 Tramadol Hcl (Tramadol HCl) 50 Mg Tablet, 50 MG PO Q4HPRN, TAB 05/17/17 Paroxetine HCl (Paroxetine HCl) 20 Mg Tablet, 20 MG PO AM, TAB 05/17/17 Oxybutynin Chloride (Ditropan Xl) 10 Mg Tab.er.24, 10 MG PO AM 05/17/17 Meclizine HCl (Meclizine HCl) 25 Mg Tablet, 25 MG PO TID, TAB 05/17/17 Loratadine (Loratadine) 10 Mg Capsule, 10 MG PO AM, CAP 05/17/17 Lisinopril/Hydrochlorothiazide (Lisinopril-Hctz 10-12.5 mg Tab) 1 Each Tablet, 1 EACH PO AM, TAB 05/17/17 Gabapentin (Gabapentin) 600 Mg Tablet, 600 MG PO TID, TAB 05/17/17 Ezetimibe (Ezetimibe) 10 Mg Tablet, 10 MG PO AM, TAB 05/17/17 Atorvastatin Calcium (Atorvastatin Calcium) 40 Mg Tablet, 40 MG PO AM, TAB 05/17/17 Metoprolol Succinate (Metoprolol Succinate) 50 Mg Tab.er.24h, 50 MG PO AM, TAB 05/17/17 Alprazolam (Alprazolam) 2 Mg Tablet, 2 MG PO BID, TAB 05/17/17 Past Medical History Past Medical History: Depression, Diabetes-Type II, High Cholesterol, Hypertension Medical History Other: uterine ca; CHRONIC BACK PAIN, poor historian of health Past Surgical History: Other Surgical History Other: BACK SX Family History Family History: Negative Social History Social History: Negative, Lives with family Female( History) History: Not Applicable ROS Dictation CONSTITUTIONAL: Negative except for HPI HEAD/FACE: Negative except for HPI EENT: Negative except for HPI RESPIRATORY: Negative except for HPI GASTROINTESTINAL/ABDOMINAL: Negative except for HPI GENITOURINARY: Negative except for HPI MUSCULOSKELETAL: Negative except for HPI INTEGUMENTARY: Negative except for HPI NEUROLOGICAL/PSYCH: Negative except for HPI HEMATOLOGIC/LYMPHATIC: Negative except for HPI All Systems Negative, Except as noted above. 13 point review of systems assessed and all negative except for above. Physical Exam Physical Exam Dictation Vital Signs reviewed General Appearance: Alert, oriented x 3, no acute distress, well developed, nourished. Head and Face: non-traumatic. Eyes: PERRL, pink conjunctivas, eyelid no trauma, anterior chamber with arcus senilis. Ears: Pinnas intact and no signs of trauma or erythema ear canals clear and no discharge TM no erythema Nose: No discharge, no bleeding. Oropharynx: Mouth normal, tongue pink, pharynx clear,no erythema, tonsils no exudates, no abscesses noted, mucous membrane moist Neck: Supple, non-tender, no thyromegaly, no masses, no JVD, no bruits Breast:Deferred Chest:No tenderness, no crepitus, no paradoxical movement, no retractions Lungs:Clear, well-ventilated, symmetric, no rales, no wheezing, no rhonchi, no stridor, good breath sounds bilaterally Heart: Regular rate, regular rhythm, no murmur, no gallops Vascular: no peripheral edema, Abdomen: Soft, positive bowel sounds, nondistended, no guarding, nontender, no rebound, no masses no hepatomegaly, no splenomegaly, no Paulino's sign, no hernias. Rectal: Deferred Genital: Deferred Neurological: Normal speech, motor function intact, sensory function intact Musculoskeletal: Neck nontender, full range of motion, back nontender, full range of motion, Extremities: nontender, full range of motion Skin: Color pink, dry, no turgor, no rash, no lacerations, no abrasions, no contusions. Lymphatic: Deferred Results Laboratory and Microbiology Lab and Micro Result Laboratory Tests Test 09/30/24 08:40 White Blood Count 7.1 K/uL (4.8-10.8) Red Blood Count 4.66 MIL/uL (4.00-5.50) Hemoglobin 13.1 g/dL (12.0-16.0) Hematocrit 39.2 % (36-48) Mean Corpuscular Volume 84.1 fL (79-99) Mean Corpuscular Hemoglobin 28.1 pg (27.0-33.0) Mean Corpuscular Hemoglobin Concent 33.4 g/dL (32.0-36.0) Red Cell Distribution Width 14.0 % (11.0-15.5) Platelet Count 169 K/uL (130-400) Mean Platelet Volume 11.2 fL (7.5-10.5) H Immature Granulocyte % (Auto) 0.3 % (0-1) Neutrophils (%) (Auto) 67.8 % (40.0-77.0) Lymphocytes (%) (Auto) 22.1 % (21.0-51.0) Monocytes (%) (Auto) 9.2 % (3.0-13.0) Eosinophils (%) (Auto) 0.3 % (0.0-8.0) Basophils (%) (Auto) 0.3 % (0.0-5.0) Neutrophils # (Auto) 4.8 K/uL (1.8-7.7) Lymphocytes # (Auto) 1.6 K/uL (1.0-4.8) Monocytes # (Auto) 0.7 K/uL (0.1-1.0) Eosinophils # (Auto) 0.02 K/uL (0.00-0.70) Basophils # (Auto) 0.02 K/uL (0.00-0.20) Absolute Immature Granulocyte (auto 0.02 K/uL (0-1) Nucleated Red Blood Cells 0.0 % (0.0-0.19) Sodium Level 141 mmol/L (136-145) Potassium Level 3.2 mmol/L (3.5-5.1) L Chloride Level 103 mmol/L (101-111) Carbon Dioxide Level 24 mmol/L (21-32) Blood Urea Nitrogen 11 mg/dL (7-18) Creatinine 0.5 mg/dL (0.5-1.0) Glomerular Filtration Rate Calc 102 mL/min (>90) Random Glucose 83 mg/dL (70-105) Total Calcium 9.4 mg/dL (8.5-10.1) Troponin I High Sensitivity 9 ng/L (4-50) Labs Reviewed?: Yes MDM MDM: Differential diagnosis: Insomnia, dehydration, electrolyte abnormality, anemia There are no social concerns with this patient. Prescription drug management Prescriptions will include: None Medical management and examination interpretation discussions were had by me with other qualified healthcare professionals as indicated for the patient's care. ED Course Orders Procedure Category Date Status Time Cbc With Differential LAB 09/30/24 Complete 08:18 Basic Metabolic Panel LAB 09/30/24 Complete 08:18 12 Lead Ekg Tracing- EKG 09/30/24 Complete Technical 08:18 Troponin I High LAB 09/30/24 Complete Sensitivity 08:18 Urinalysis Profile LAB 09/30/24 Logged 08:18 Morphine 2mg Syg PHA 09/30/24 Complete (Morphine 2mg Syg) 08:30 Ondansetron 4mg Inj PHA 09/30/24 Complete (Zofran 4mg Inj) 08:30 Potassium Bicarb/Cit PHA 09/30/24 Complete Ac 25meq (K-Lyte Ta 10:00 Current Medications Medications (Trade) Dose Ordered Sig/[place] Route PRN Reason Start Time Stop Time Status Last Admin Dose Admin Morphine Sulfate (morPHINE 2MG SYG) 2 mg ONCE ONCE IVP 09/30/24 08:30 09/30/24 08:31 DC 09/30/24 08:34 Ondansetron HCl (zoFRAN 4MG INJ) 4 mg ONCE ONCE IVP 09/30/24 08:30 09/30/24 08:31 DC 09/30/24 08:34 Potassium Bicarbonate (K-Lyte Tablet Eff 25 Meq Tablet.eff) 25 meq ONCE ONCE PO 09/30/24 10:00 09/30/24 10:01 DC Vital Signs Date Time Temp Pulse Resp B/P (MAP) Pulse Ox O2 Delivery O2 Flow Rate FiO2 09/30/24 07:52 99.3 111 20 171/104 96 Room Air* 0 21 09/30/24 07:44 99.3 111 16 171/104 96 Room Air 0 DX & DISP Disposition: Discharge Departure Impression: Primary Impression: Insomnia Additional Impression: Hypokalemia Condition: Stable Additional Instructions: Your blood work today shows a slightly low potassium. The remainder of your blood work is unremarkable. You will need to follow up with your primary care doctor for further evaluation. Return to the ER if you develop any new or worsening symptoms Referrals: MARAL DUONG MD (PCP) Time of Disposition: 09:55 I have reviewed the case, and I agree with, Diagnosis and Plan I performed the substantive portion of the visit. I have reviewed and personally made and approve the management plan that is documented in the note by myself or the RAQUEL. I acknowledge for responsibility for the patient's management plan. MELISSA DUFFY Sep 30, 2024 08:27
--- NOTE | 2024-09-30 08:32 | EKG ---
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 : 1955 Requested By: BHASKAR REYES Order Number: [id number] Reading MD: Ruy Jones Measurements Intervals [place] Rate: 90 P: 31 NC: 150 QRS: -40 QRSD: 101 T: 44 QT: 401 QTc: 492 Interpretive Statements Sinus rhythm Left axis deviation Nonspecific T abnrm, anterolateral leads, probable anterior ischemia Compared to ECG 08/11/2024 08:34:53 Left-axis deviation now present Ectopic atrial rhythm no longer present Myocardial infarct finding no longer present Electronically Signed On 09-30-2024 22:02:48 ACCOUNT DEVELOPMENT REPRESENTATIVE by Ruy Jones Please click the below link to view image of tracing.
[2024-09-30] MEDS: morPHINE 2 MG SYG IVP ONE (08:34)
[2024-09-30] MEDS: ondanSETRON 4MG INJ IVP ONE (08:34)
[2024-09-30 08:48] LABS: BASOPHILS # (AUTO) 0.02 K/uL (0.00-0.20); BASOPHILS % (AUTO) 0.3 % (0.0-5.0); EOSINOPHILS # (AUTO) 0.02 K/uL (0.00-0.70); EOSINOPHILS % (AUTO) 0.3 % (0.0-8.0); HEMATOCRIT 39.2 % (36-48); IMMATURE GRANULOCYTE ABSOLUTE 0.02 K/uL (0-1); LYMPHOCYTES # (AUTO) 1.6 K/uL (1.0-4.8); LYMPHOCYTES % (AUTO) 22.1 % (21.0-51.0); MEAN CORPUSCULAR HEMOGLOBIN 28.1 pg (27.0-33.0); MEAN CORPUSCULAR HGB CONC 33.4 g/dL (32.0-36.0); MEAN CORPUSCULAR VOLUME 84.1 fL (79-99); MONOCYTES # (AUTO) 0.7 K/uL (0.1-1.0); MONOCYTES % (AUTO) 9.2 % (3.0-13.0); NEUTROPHILS # (AUTO) 4.8 K/uL (1.8-7.7); NEUTROPHILS % (AUTO) 67.8 % (40.0-77.0); PLATELET COUNT (AUTO) 169 K/uL (130-400); RED BLOOD CELL COUNT(AUTO) 4.66 MIL/uL (4.00-5.50); WHITE BLOOD COUNT (AUTO) 7.1 K/uL (4.8-10.8)
[2024-09-30 08:56] LABS: CREATININE 0.5 mg/dL (0.5-1.0); POTASSIUM 3.2 mmol/L (3.5-5.1)
[2024-09-30 10:52] VITALS: BP 144/85; PULSE 92; RESP 18; TEMP 98.6; O2SAT 98
[2024-09-30] MEDS: PoTASSium BIcarbonate/CIT AC 25 MEQ TABLET.EFF PO ONE (10:54)
[2024-09-30 12:13] LABS: BILIRUBIN,URINE NEGATIVE (NEGATIVE); COLOR,URINE YELLOW (YELLOW); GLUCOSE, URINE (UA) NEGATIVE (NEGATIVE); KETONES,URINE 100 mg/dL (NEGATIVE); LEUKOCYTE ESTERASE ,URINE 75 Leu/uL (NEGATIVE); NITRATE,URINE 2+ (NEGATIVE); OCCULT BLOOD,URINE SMALL (NEGATIVE); PH,URINE 6.5 (5.0-8.0); PROTEIN,URINE 30 mg/dL (NEGATIVE); UROBILINOGEN,URINE 0.2 mg/dL (0.2-1.0)
[2024-09-30 12:23] LABS: ADD UA MICROSCOPIC YES; APPEARANCE,URINE HAZY (CLEAR)
[2024-09-30 12:30] LABS: BACTERIA,URINE MANY /HPF (None Seen); MUCUS,URINE FEW LPF (None Seen)
== END 2024-09-30 11:06 | disposition home or self-care (01) ==
LOC: EDH 07:38
DX: G47.00 Insomnia, unspecified (principal); E87.6 Hypokalemia; E11.9 Type 2 diabetes mellitus without complications; E78.00 Pure hypercholesterolemia, unspecified; F32.A Depression, unspecified; F41.9 Anxiety disorder, unspecified; I10 Essential (primary) hypertension; I21.9 Acute myocardial infarction, unspecified; Z79.899 Other long term (current) drug therapy
CPT/HCPCS: 99284; 96374; 96375; 84484; 80048; 85025; 87086 ×2; 87186; 81001; 36415; 93005; J2270; J2405

== ENCOUNTER 2025-02-03 11:17 | Emergency (ER) | payer OTHER ==
[~2025-02-03] VITALS: Ht 167.6 cm; Wt 69.4 kg
[~2025-02-03 11:17] MED LIST changes: +ZOLP-684 PO; -ZOLP5TAB2 PO
[2025-02-03] MEDS ORDERED: ketaMINE 50MG/ML SYRINGE 50 MG/ML DISP.SYRIN ONE (11:24)
[2025-02-03] MEDS ORDERED: rocuRONium bROMide 10MG/1ML 5ML VL ONE (11:24)
[2025-02-03] MEDS ORDERED: proPOFol 1000 MG/100 ML 100 ML IV ONE (11:31)
[2025-02-03 11:33] VITALS: PULSE 117; O2SAT 100
[2025-02-03] MEDS ORDERED: IOHEXOL-350 75 ML VIAL IV ONE (11:39)
[2025-02-03 11:43] LABS: BASOPHILS # (AUTO) 0.02 K/uL (0.00-0.20); BASOPHILS % (AUTO) 0.3 % (0.0-5.0); EOSINOPHILS # (AUTO) 0.02 K/uL (0.00-0.70); EOSINOPHILS % (AUTO) 0.3 % (0.0-8.0); HEMATOCRIT 42.9 % (36-48); IMMATURE GRANULOCYTE ABSOLUTE 0.03 K/uL (0-1); LYMPHOCYTES # (AUTO) 1.5 K/uL (1.0-4.8); MEAN CORPUSCULAR HEMOGLOBIN 29.7 pg (27.0-33.0); MEAN CORPUSCULAR HGB CONC 33.1 g/dL (32.0-36.0); MEAN CORPUSCULAR VOLUME 89.7 fL (79-99); MONOCYTES # (AUTO) 0.3 K/uL (0.1-1.0); NEUTROPHILS # (AUTO) 4.6 K/uL (1.8-7.7); NEUTROPHILS % (AUTO) 71.9 % (40.0-77.0); PLATELET COUNT (AUTO) 181 K/uL (130-400); RED BLOOD CELL COUNT(AUTO) 4.78 MIL/uL (4.00-5.50); RED CELL DISTRIBUTION WIDTH 12.3 % (11.0-15.5); WHITE BLOOD COUNT (AUTO) 6.4 K/uL (4.8-10.8)
[2025-02-03 11:54] LABS: CREATININE 0.5 mg/dL (0.5-1.0); POTASSIUM 3.3 mmol/L (3.5-5.1)
[2025-02-03 11:56] LABS: INR 1.04 (0.85-1.15)
[2025-02-03 11:57] LABS: PARTIAL THROMBOPLASTIN TIME 29.2 SEC (26.3-35.5)
[2025-02-03] MEDS ORDERED: teTANUS/diphthERIA TOXOID [ADULT] 0.5 ML VIAL IM ONE (12:00)
[2025-02-03] MEDS ORDERED: ceFAZolin SODIUM 1 GM VIAL IVPB SCH (12:00)
--- NOTE | 2025-02-03 12:02 | HMCIMG ---
Exam Type: CHEST 1VW Clinical Information: CP Comparison: None Findings: Endotracheal tube is noted with tip Within the right mainstem bronchus origin, consider repositioning; and no interval changes are seen otherwise. IMPRESSION: Endotracheal tube tip as noted.
--- NOTE | 2025-02-03 12:12 | EKG ---
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1955 Requested By: MARCIA BAKER Order Number: [id number] Reading MD: Maile Polanco Measurements Intervals [place] Rate: 117 P: 61 DC: 166 QRS: -64 QRSD: 88 T: 65 QT: 324 QTc: 451 Interpretive Statements Sinus tachycardia Consider left ventricular hypertrophy Inferior infarct, old Nonspecific T abnormalities, lateral leads Compared to ECG 09/30/2024 08:26:13 Myocardial infarct finding now present T-wave abnormality now present Sinus rhythm no longer present Left-axis deviation no longer present Possible ischemia no longer present Electronically Signed On 02-03-2025 14:24:42 CDT by Maile Polanco Please click the below link to view image of tracing.
--- NOTE | 2025-02-03 12:13 | NUR ---
PT RESTING CURRENTLY, VITALS STABLE
--- NOTE | 2025-02-03 12:16 | HMCIMG ---
CT neck with and without contrast with special attention to the carotid and vertebral artery system bilaterally Comparison Study: none History: r/o CVA CT Dose Index (CTDI): mGy Dose Length Product (DLP): total mGy-cm Note: Exposure factors and contrast administration applies to both the CT angiogram of the head and the neck done at the same time. PROTOCOL: Examination is done after contrast administration with 100 cc of Isovue 370 IV. Photography is done at 5 millimeter thick intervals for the head. The study was performed in the axial plane, and reconstructed and photographed in sagittal and coronal planes as well. Findings: Intramuscular acute hematoma of the left sternocleidomastoid muscle is seen with active extravasation. The carotid system is preserved bilaterally without significant atheromatous disease. There is no aneurysm. There is no occlusion. There is no dissection. The examination of the cervical spine shows no fractures, dislocations, or significant abnormalities. The examination on the neck is unremarkable otherwise. No lymphadenopathy seen. There are no masses. There are no other fluid collections. The fat planes are preserved. The parotid glands are intact. Sebaceous cyst of the subcutaneous tissues of the midline low neck seen measuring 2.7 cm. Endotracheal tube tip within the right mainstem bronchus. Consider repositioning. Impression: No large vessel laceration or occlusion. Active extravasation of blood into an acute intramuscular hematoma of the left sternocleidomastoid muscle. Endotracheal tube tip within the right mainstem bronchus. Consider repositioning. Information delivered to emergency room at 12:11 PM. This study was performed using dose reduction techniques to include automated exposure control and/or adjustment of the mA and/or kV according to patient size.
--- NOTE | 2025-02-03 12:20 | ERN ---
General Chief Complaint: Laceration/Avulsion Stated Complaint: TRIED CUTTING NECK Time Seen by MD: :17 Source: patient History of Present Illness Initial Comments IN HIS IS A 69-YEAR-OLD FEMALE COMING IN TO BE EVALUATED FOR A SELF-INFLICTED LEFT NECK WOUND. PATIENT DID VOICE SUICIDAL IDEATION. BROUGHT IN BY FAMILY MEMBER. Allergies: Coded Allergies: No Known Drug Allergies (Unverified Allergy, Unknown, 05/17/17) Home Meds Active Scripts Nitrofurantoin/Nitrofuran Mac (Macrobid) 100 Mg Cap, 1 CAP PO BID for 5 Days, #10 CAP 0 Refills Prov:THAD GERBER DO 08/11/24 Zolpidem Tartrate (Ambien) 5 Mg Tablet, 1 TAB PO HSPRN PRN for sleep for 14 Days, #14 TAB 0 Refills Prov:THAD GERBER DO 08/11/24 Sulfamethoxazole/Trimethoprim (Bactrim Ds Tablet) 800 Mg-160 Mg Tablet, 1 TAB PO BID for 7 Days, #14 TAB Prov:CHAD DEL REAL MD 06/05/24 Ondansetron (Ondansetron Odt) 4 Mg Tab.rapdis, 4 MG PO TID for NAUSEA, #15 TAB Prov:NADINE MANUEL MD 07/26/22 Loperamide HCl (Loperamide) 2 Mg Capsule, 2 MG PO QID for LOOSE STOOL, #30 CAP Prov:NADINE MANUEL MD 07/26/22 Acetaminophen (Acetaminophen) 500 Mg Tablet, 1000 MG PO QID for FEVER, #50 TAB Prov:NADINE MANUEL MD 07/26/22 Pantoprazole Sodium (Protonix) 40 Mg Ectab, 40 MG PO DAILY for 30 Days, #30 TAB.EC Prov:MARCIA BAKER MD 07/25/22 Tramadol Hcl (Tramadol HCl) 50 Mg Tablet, 50 MG PO BID for 5 Days, #10 TAB Prov:ERICA ESTRELLA NP 09/06/21 Lorazepam (Ativan) 1 Mg Tablet, 1 MG PO DAILY for 2 Days, #2 TAB Take one or two as needed qHS Prov:TIESHA CHEEK MD 08/18/21 Reported Medications Cromolyn Sodium (Nasal Allergy [place]) 13 Ml [place].pump, 13 ML NS AM 05/17/17 Vitamin E Mixed (Vitamin E) 400 Unit Capsule, 400 UNIT PO AM, CAP 05/17/17 Tramadol Hcl (Tramadol HCl) 50 Mg Tablet, 50 MG PO Q4HPRN, TAB 05/17/17 Paroxetine HCl (Paroxetine HCl) 20 Mg Tablet, 20 MG PO AM, TAB 05/17/17 Oxybutynin Chloride (Ditropan Xl) 10 Mg Tab.er.24, 10 MG PO AM 05/17/17 Meclizine HCl (Meclizine HCl) 25 Mg Tablet, 25 MG PO TID, TAB 05/17/17 Loratadine (Loratadine) 10 Mg Capsule, 10 MG PO AM, CAP 05/17/17 Lisinopril/Hydrochlorothiazide (Lisinopril-Hctz 10-12.5 mg Tab) 1 Each Tablet, 1 EACH PO AM, TAB 05/17/17 Gabapentin (Gabapentin) 600 Mg Tablet, 600 MG PO TID, TAB 05/17/17 Ezetimibe (Ezetimibe) 10 Mg Tablet, 10 MG PO AM, TAB 05/17/17 Atorvastatin Calcium (Atorvastatin Calcium) 40 Mg Tablet, 40 MG PO AM, TAB 05/17/17 Metoprolol Succinate (Metoprolol Succinate) 50 Mg Tab.er.24h, 50 MG PO AM, TAB 05/17/17 Alprazolam (Alprazolam) 2 Mg Tablet, 2 MG PO BID, TAB 05/17/17 Past Medical History Past Medical History: Depression, Diabetes-Type II, High Cholesterol, Hypertension Medical History Other: uterine ca; CHRONIC BACK PAIN, poor historian of health Past Surgical History: Other Surgical History Other: BACK SX Family History Family History: Negative Social History Social History: Negative, Lives with family Female( History) History: Not Applicable ROS Dictation UNABLE TO ASSESS COMPLETELY PATIENT IS A VERY DISTRAUGHT Physical Exam Physical Exam Dictation VITAL SIGNS: REVIEWED. GENERAL APPEARANCE: ALERT, ORIENTED X3, NO ACUTE DISTRESS, OBESE. HEAD AND FACE: NON-TRAUMATIC. EYES: PERRL, PINK CONJUNCTIVAS, EYELID NO TRAUMA, ANTERIOR CHAMBER CLEAR. EARS: PINNAS INTACT AND NO SIGNS OF TRAUMA OR ERYTHEMA. EAR CANALS CLEAR AND NO DISCHARGE. TMS NO ERYTHEMA. NOSE: NO DISCHARGE, NO BLEEDING. OROPHARYNX: MOUTH NORMAL, TEETH NO CARIES, TONGUE PINK. PHARYNX CLEAR, NO KOFFI THEMA. TONSILS NO EXUDATES, NO ABSCESSES NOTED. MUCOUS MEMBRANE MOIST. NECK: SUPPLE, NON-TENDER, NO THYROMEGALY, NO MASSES, NO JVD, NO BRUITS. BREAST: DEFERRED. CHEST: NO TENDERNESS, NO CREPITUS, NO PARADOXICAL MOVEMENT, NO RETRACTIONS. LUNGS: CLEAR, WELL-VENTILATED, SYMMETRIC, NO RALES, NO WHEEZING, NO RHONCHI, NO STRIDOR, GOOD BREATH SOUNDS BILATERALLY. HEART: REGULAR RATE, REGULAR RHYTHM, NO MURMUR, NO GALLOPS. VASCULAR: NO PERIPHERAL EDEMA. ABDOMEN: SOFT, POSITIVE BOWEL SOUNDS, NONDISTENDED, NO GUARDING, NONTENDER, NO REBOUND, NO MASSES NO HEPATOMEGALY, NO SPLENOMEGALY, NO WALTERS'S SIGN, NO HERNIAS. RECTAL: DEFERRED. GENITAL: DEFERRED. NEUROLOGICAL: NORMAL SPEECH, GROSS MOTOR FUNCTION INTACT, GROSS SENSORY FUNCTION INTACT. MUSCULOSKELETAL: NECK NONTENDER, FULL RANGE OF MOTION, BACK NONTENDER, FULL RANGE OF MOTION. EXTREMITIES: NONTENDER, FULL RANGE OF MOTION. SKIN: COLOR PINK, DRY, NO TURGOR, NO RASH, LACERATION 3 CM IN THE LEFT BASE OF THE NECK CLOT IN PLACE LYMPHATICS: DEFERRED. Results Laboratory and Microbiology Lab and Micro Result Laboratory Tests Test 02/03/25 11:31 White Blood Count 6.4 K/uL (4.8-10.8) Red Blood Count 4.78 MIL/uL (4.00-5.50) Hemoglobin 14.2 g/dL (12.0-16.0) Hematocrit 42.9 % (36-48) Mean Corpuscular Volume 89.7 fL (79-99) Mean Corpuscular Hemoglobin 29.7 pg (27.0-33.0) Mean Corpuscular Hemoglobin Concent 33.1 g/dL (32.0-36.0) Red Cell Distribution Width 12.3 % (11.0-15.5) Platelet Count 181 K/uL (130-400) Mean Platelet Volume 11.6 fL (7.5-10.5) H Immature Granulocyte % (Auto) 0.5 % (0-1) Neutrophils (%) (Auto) 71.9 % (40.0-77.0) Lymphocytes (%) (Auto) 23.0 % (21.0-51.0) Monocytes (%) (Auto) 4.0 % (3.0-13.0) Eosinophils (%) (Auto) 0.3 % (0.0-8.0) Basophils (%) (Auto) 0.3 % (0.0-5.0) Neutrophils # (Auto) 4.6 K/uL (1.8-7.7) Lymphocytes # (Auto) 1.5 K/uL (1.0-4.8) Monocytes # (Auto) 0.3 K/uL (0.1-1.0) Eosinophils # (Auto) 0.02 K/uL (0.00-0.70) Basophils # (Auto) 0.02 K/uL (0.00-0.20) Absolute Immature Granulocyte (auto 0.03 K/uL (0-1) Nucleated Red Blood Cells 0.0 % (0.0-0.19) Prothrombin Time 11.0 SEC (9.6-11.6) Prothromb Time International Ratio 1.04 (0.85-1.15) Activated Partial Thromboplast Time 29.2 SEC (26.3-35.5) Sodium Level 144 mmol/L (136-145) Potassium Level 3.3 mmol/L (3.5-5.1) L Chloride Level 105 mmol/L (101-111) Carbon Dioxide Level 26 mmol/L (21-32) Blood Urea Nitrogen 14 mg/dL (7-18) Creatinine 0.5 mg/dL (0.5-1.0) Glomerular Filtration Rate Calc 101 mL/min (>90) Random Glucose 107 mg/dL (70-105) H Total Calcium 9.2 mg/dL (8.5-10.1) Magnesium Level 2.00 mg/dL (1.80-2.40) Total Creatine Kinase 43 U/L (21-232) Labs Reviewed?: Yes MDM MDM: DIFFERENTIAL DIAGNOSIS: NECK LACERATION, EXTRAVASATION OF THE STERNOCLEIDOMASTOID, NECK WOUND, SUICIDAL IDEATION RATIONALE: TESTS CONSIDERED AND ORDERED SECONDARY TO SHARED DECISION MAKING INCLUDE: LABS, ECG AND RADIOLOGY PREVIOUS OUTSIDE RECORDS REVIEWED: OLD ER VISITS. RISK OF COMPLICATION AND/OR MORBIDITY OR MORTALITY OF PATIENT MANAGEMENT: NONE MEDICATIONS-PER MEDICATION RECONCILIATION NEED FOR HOSPITALIZATION: PATIENT DOES MEET CRITERIA FOR HOSPITALIZATION. NEED FOR EMERGENCY MAJOR/MINOR SURGERY: NO THERE ARE NO SOCIAL CONCERNS WITH THIS PATIENT. PRESCRIPTION DRUG MANAGEMENT PRESCRIPTIONS WILL INCLUDE SYMPTOMATIC CARE PATIENT'S PRIOR EXTERNAL MEDICAL RECORDS FROM OTHER ER VISITS WERE REVIEWED BY ME INDICATED. PRIOR TESTING AND RESULTS FROM PREVIOUS VISITS WERE REVIEWED. PRIOR TESTS WERE TAKEN INTO ACCOUNT WITH MEDICAL DECISION MAKING AND RESOURCE UTILIZATION, INDEPENDENT HISTORIAN/HISTORIANS WERE USED TO OBTAIN COMPLETE MEDICAL HISTORY. I INDEPENDENTLY INTERPRETED THE TEST THAT WERE PERFORMED, RESULTS WERE REVIEWED BY ME AND CONSIDERED FINDINGS ON RADIOLOGY IF ORDERED. MEDICAL MANAGEMENT AND EXAMINATION INTERPRETATION DISCUSSIONS WERE HAD BY ME WITH OTHER QUALIFIED HEALTHCARE PROFESSIONALS INDICATED FOR THE PATIENT'S CARE. PATIENT IS A 69-YEAR-OLD FEMALE COMING IN DUE TO SELF-INFLICTED LEFT NECK LACERATION. PATIENT DID VOICE SUICIDAL IDEATION. CT DISCLOSE EXTRAVASATION INTO THE STERNOCLEIDOMASTOID WITH A 3.5 EXPANDING HEMATOMA, PATIENT WILL BE T RANSFERRED TO CURRIE RAMAN NELSON TRAUMA SURGEON ON THE CASE, [facility] ER MD. ED Course Orders Procedure Category Date Status Time Chest 1vw RAD 02/03/25 Resulted 11:19 Ketamine 50mg/Ml PHA 02/03/25 Complete Syringe (Ketamine 11:24 Rocuronium [place] PHA 02/03/25 Complete (Zemuron) 11:24 Propofol 1000 Mg/100 PHA 02/03/25 Complete Ml (Diprivan 1000mg 11:31 Cbc With Differential LAB 02/03/25 In Process 11:30 Prothrombin Time With LAB 02/03/25 Complete INR 11:30 B-Type Natriuretic LAB 02/03/25 In Process Peptide 11:30 12 Lead Ekg Tracing- EKG 02/03/25 Complete Technical 11:30 Magnesium LAB 02/03/25 Complete 11:30 Creatine Kinase, Total LAB 02/03/25 Complete 11:30 Troponin I High LAB 02/03/25 In Process Sensitivity 11:30 Urinalysis Profile LAB 02/03/25 Logged 11:30 Partial LAB 02/03/25 Complete Thromboplastin Time 11:30 Basic Metabolic Panel LAB 02/03/25 Complete 11:[address] 02/03/25 Resulted 11:30 Tetanus,Diphtheria PHA 02/03/25 Complete Tox [Adult] (Diphther 12:00 Cefazolin Sodium 1 Gm PHA 02/03/25 In Process Vial (Ancef 1 Gm V 12:00 Iohexol (Omnipaque) PHA 02/03/25 Complete 11:39 Type And Screen BBK 02/03/25 In Process 11:31 Current Medications Medications (Trade) Dose Ordered Sig/[place] Route PRN Reason Start Time Stop Time Status Last Admin Dose Admin Cefazolin Sodium (ANCEF 1 gm vial) 1 gm Q8H IVPB 02/03/25 12:00 02/13/25 11:59 Iohexol (Omnipaque) 75 ml STK-MED ONCE IV 02/03/25 11:39 02/03/25 11:39 DC Ketamine HCl (ketaMINE 50MG/ ML SYRINGE) 50 mg STK-MED ONCE .ROUTE 02/03/25 11:24 02/03/25 11:25 DC Propofol 100 ml @ As Directed STK-MED ONCE IV 02/03/25 11:31 02/03/25 11:31 DC Rocuronium [place] (ZemuRON) 50 mg STK-MED ONCE .ROUTE 02/03/25 11:24 02/03/25 11:25 DC Tetanus/ Diphtheria Toxoids Adsorbed (DiphthERIA-teTANUS TOXOID [ADULT]/ DECAVAC) 0.5 ml ONCE ONCE IM 02/03/25 12:00 02/03/25 12:01 DC Vital Signs Date Time Temp Pulse Resp B/P (MAP) Pulse Ox O2 Delivery O2 Flow Rate FiO2 02/03/25 12:14 98.2 81 20 110/67 100 Ventilator+ 50 02/03/25 11:22 98.2 119 22 231/147 99 0 Procedure Dictation THE PROCEDURE WAS EMERGENT, THE PATIENT WAS UNABLE TO PROVIDE CONSENT, AND A DESIGNEE WAS NOT IMMEDIATELY AVAILABLE. PROCEDURE SUMMARY: A TIME OUT WAS PERFORMED. MY HANDS WERE WASHED IMMEDIATELY PRIOR TO THE PROCEDURE. I WORE A SURGICAL CAP, MASK WITH PROTECTIVE EYEWEAR, GOWN AND GLOVES THROUGHOUT THE PROCEDURE. THE PATIENT WAS PLACED ON A TECHNOLOGY ADOPTION MANAGER INCLUDING CONTINUOUS PULSE OXIMETRY. RAPID SEQUENCE INTUBATION WAS CONDUCTED. THE PATIENT RECEIVED 100 MG OF KETAMINE FOR INDUCTION AND 50 MG OF GERSON FOR ADEQUATE PARALYSIS. CRICOID PRESSURE WAS MAINTAINED FROM TIME INDUCTION AGENT WAS GIVEN TO TIME OF CUFF BALLOON INFLATION. USING A GLIDESCOPE AND A SIZE [7.5 ] ENDOTRACHEAL TUBE WITH STYLET, THE PATIENT WAS INTUBATED ON THE 1 ATTEMPT. THE STYLET WAS REMOVED AND CUFF BALLOON WAS INFLATED. APPROPRIATE ENDOTRACHEAL TUBE POSITION WAS CONFIRMED BY DIRECT VISUALIZATION OF VOCAL CORD PASSAGE, FOGGING OF THE TUBE, CO2 COLORMETRIC INDICATOR AND SYMMETRIC BREATH SOUNDS. THE TUBE WAS SECURED AT [23 ] CM AT THE LIPS. POST INTUBATION CHEST X-RAY IS PENDING AT THIS TIME. Critical Care Note Comments CRITICAL CARE PROCEDURE NOTE AUTHORIZED AND PERFORMED BY: ME TOTAL CRITICAL CARE TIME: APPROXIMATELY 36 MINUTES DUE TO A HIGH PROBABILITY OF CLINICALLY SIGNIFICANT, LIFE THREATENING DETERIORATION, THE PATIENT REQUIRED MY HIGHEST LEVEL OF PREPAREDNESS TO INTERV [place] EMERGENTLY AND I PERSONALLY SPENT THIS CRITICAL CARE TIME DIRECTLY AND PERSONALLY MANAGING THE PATIENT. THIS CRITICAL CARE TIME INCLUDED OBTAINING A HISTORY; EXAMINING THE PATIENT; PULSE OXIMETRY; ORDERING AND REVIEW OF STUDIES; ARRANGING URGENT TREATMENT WITH DEVELOPMENT OF A MANAGEMENT PLAN; EVALUATION OF PATIENT'S RESPONSE TO TREATMENT; FREQUENT REASSESSMENT; AND, DISCUSSIONS WITH OTHER PROVIDERS. THIS CRITICAL CARE TIME WAS PERFORMED TO ASSESS AND MANAGE THE HIGH PROBABILITY OF IMMINENT, LIFE-THREATENING DETERIORATION THAT COULD RESULT IN MULTI-ORGAN FAILURE. IT WAS EXCLUSIVE OF SEPARATELY BILLABLE PROCEDURES AND TREATING OTHER PATIENTS AND TEACHING TIME. PLEASE SEE MDM SECTION AND THE REST OF THE NOTE FOR FURTHER INFORMATION ON PATIENT ASSESSMENT AND TREATMENT. DX & DISP Disposition: Transfer Departure Impression: Primary Impression: Laceration of nape of neck with complication Additional Impressions: Extravasation injury, Hematoma of neck, Endotracheally intubated Condition: Stable Referrals: MARAL DUONG MD (PCP) MARCIA BAKER MD February 03, 2025 12:20
[2025-02-03 12:25] LABS: B-TYPE NATRIURETIC PEPTIDE 16 pg/mL (0-100)
[2025-02-03 12:44] VITALS: BP 137/89; PULSE 74; RESP 20; TEMP 98.2; O2SAT 99
[2025-02-03 13:42] LABS: APPEARANCE,URINE CLEAR (CLEAR); BILIRUBIN,URINE NEGATIVE (NEGATIVE); COLOR,URINE COLORLESS (YELLOW); GLUCOSE, URINE (UA) NEGATIVE (NEGATIVE); KETONES,URINE 10 mg/dL (NEGATIVE); LEUKOCYTE ESTERASE ,URINE NEGATIVE Leu/uL (NEGATIVE); NITRATE,URINE NEGATIVE (NEGATIVE); PROTEIN,URINE NEGATIVE (NEGATIVE); UROBILINOGEN,URINE 0.2 mg/dL (0.2-1.0)
[2025-02-03 13:45] LABS: ADD UA MICROSCOPIC YES
[2025-02-03 13:56] LABS: MUCUS,URINE RARE LPF (None Seen); WBC,URINE 0-1 /HPF (0-1)
[2025-02-04] MEDS ORDERED: proPOFol 1000 MG/100 ML IV PRN (08:30)
[2025-02-04] MEDS ORDERED: ketaMINE 50MG/ML SYRINGE 50 MG/ML DISP.SYRIN IM ONE (08:30)
== END 2025-02-03 12:30 | disposition short-term general hospital (02) ==
LOC: EDH 11:17
DX: S11.91XA Laceration without foreign body of unspecified part of neck, initial encounter (principal); S10.93XA Contusion of unspecified part of neck, initial encounter; E11.9 Type 2 diabetes mellitus without complications; E78.00 Pure hypercholesterolemia, unspecified; F32.A Depression, unspecified; I10 Essential (primary) hypertension; Z79.899 Other long term (current) drug therapy; X78.8XXA Intentional self-harm by other sharp object, initial encounter; Y93.89 Activity, other specified; Y92.89 Other specified places as the place of occurrence of the external cause; Y99.8 Other external cause status
CPT/HCPCS: 99291; 31500; 70498; 71045; 82550; 83735; 84484; 80048; 83880; 85025; 85610; 85730; 86850; 86900; 86901; 81001; 36415; 93005; J3490 ×2; J2704; Q9967; 94002

== ENCOUNTER 2025-06-19 19:19 | Emergency (ER) | payer OTHER ==
[~2025-06-19] VITALS: Ht 147.3 cm; Wt 59.0 kg
[~2025-06-19 19:19] MED LIST changes: -EZET10TA48 PO; +EZET10TA80 PO
[2025-06-19 19:21] VITALS: TEMP 98.5
--- NOTE | 2025-06-19 19:54 | NUR ---
PATIENT REQUESTING CHILD CARE LEAD TEACHER CONSULTATION, DOES NOT WANT TO BE DISCHARGED HOME STATING HER IS "MEAN" TO HER. ADVISED PATIENT WE DO NOT HAVE SOCIAL WORKERS AT NIGHT.
--- NOTE | 2025-06-19 19:56 | ERN ---
General Chief Complaint: LOWER EXTREMITY EDEMA Stated Complaint: SWELLING TO BILATERAL LOWER EXTREMITIES Time Seen by MD: 19:23 History of Present Illness Initial Comments 69-year-old female with multiple medical problems including hypertension bipolar disease dementia CHF depression and type 2 diabetes. She comes in with multiple complaints: 1-an asymptomatic mass on the back in between the shoulder blades. 2-bilateral lower extremity swelling and redness with extreme tenderness because my bones are sick. 3-she had an unknown surgery on her right wrist several months ago that has healed well but the for "bone in her arm is sick". 4-she does not want to go back to her apartment because her is there and is mean to her. She would like social work to set her up an apartment while a new house is being built for her. 5-she has a bump on the back of her head when she fell a few weeks ago. 6-she wants pain medicine. Allergies: Coded Allergies: No Known Drug Allergies (Unverified Allergy, Unknown, 05/17/17) Home Meds Active Scripts Nitrofurantoin/Nitrofuran Mac (Macrobid) 100 Mg Cap, 1 CAP PO BID for 5 Days, #10 CAP 0 Refills Prov:THAD GERBER DO 08/11/24 Zolpidem Tartrate (Ambien) 5 Mg Tablet, 1 TAB PO HSPRN PRN for sleep for 14 Days, #14 TAB 0 Refills Prov:THAD GERBER DO 08/11/24 Sulfamethoxazole/Trimethoprim (Bactrim Ds Tablet) 800 Mg-160 Mg Tablet, 1 TAB PO BID for 7 Days, #14 TAB Prov:CHAD DEL REAL MD 06/05/24 Ondansetron (Ondansetron Odt) 4 Mg Tab.rapdis, 4 MG PO TID for NAUSEA, #15 TAB Prov:NADINE MANUEL MD 07/26/22 Loperamide HCl (Loperamide) 2 Mg Capsule, 2 MG PO QID for LOOSE STOOL, #30 CAP Prov:NADINE MANUEL MD 07/26/22 Acetaminophen (Acetaminophen) 500 Mg Tablet, 1000 MG PO QID for FEVER, #50 TAB Prov:NADINE MANUEL MD 07/26/22 Pantoprazole Sodium (Protonix) 40 Mg Ectab, 40 MG PO DAILY for 30 Days, #30 TAB.EC Prov:MARCIA BAKER MD 07/25/22 Tramadol Hcl (Tramadol HCl) 50 Mg Tablet, 50 MG PO BID for 5 Days, #10 TAB Prov:ERICA ESTRELLA NP 09/06/21 Lorazepam (Ativan) 1 Mg Tablet, 1 MG PO DAILY for 2 Days, #2 TAB Take one or two as needed qHS Prov:TIESHA CHEEK MD 08/18/21 Reported Medications Cromolyn Sodium (Nasal Allergy [place]) 13 Ml [place].pump, 13 ML NS AM 05/17/17 Vitamin E Mixed (Vitamin E) 400 Unit Capsule, 400 UNIT PO AM, CAP 05/17/17 Tramadol Hcl (Tramadol HCl) 50 Mg Tablet, 50 MG PO Q4HPRN, TAB 05/17/17 Paroxetine HCl (Paroxetine HCl) 20 Mg Tablet, 20 MG PO AM, TAB 05/17/17 Oxybutynin Chloride (Ditropan Xl) 10 Mg Tab.er.24, 10 MG PO AM 05/17/17 Meclizine HCl (Meclizine HCl) 25 Mg Tablet, 25 MG PO TID, TAB 05/17/17 Loratadine (Loratadine) 10 Mg Capsule, 10 MG PO AM, CAP 05/17/17 Lisinopril/Hydrochlorothiazide (Lisinopril-Hctz 10-12.5 mg Tab) 1 Each Tablet, 1 EACH PO AM, TAB 05/17/17 Gabapentin (Gabapentin) 600 Mg Tablet, 600 MG PO TID, TAB 05/17/17 Ezetimibe (Ezetimibe) 10 Mg Tablet, 10 MG PO AM, TAB 05/17/17 Atorvastatin Calcium (Atorvastatin Calcium) 40 Mg Tablet, 40 MG PO AM, TAB 05/17/17 Metoprolol Succinate (Metoprolol Succinate) 50 Mg Tab.er.24h, 50 MG PO AM, TAB 05/17/17 Alprazolam (Alprazolam) 2 Mg Tablet, 2 MG PO BID, TAB 05/17/17 Past Medical History Past Medical History: Bipolar, CHF, Dementia, Depression, Diabetes-Type II, High Cholesterol, Hypertension Medical History Other: uterine ca; CHRONIC BACK PAIN, poor historian of health Past Surgical History: Other Surgical History Other: BACK SX Family History Family History: Negative Social History Social History: Negative, Lives with family Female( History) History: Not Applicable Constitutional: (-) chills, (-) diaphoresis, (-) fever, (-) malaise, (-) weakness, (-) other documentation EENTM: (-) eye pain, (-) blurred vision, (-) tearing, (-) double vision, (-) ear pain, (-) ear discharge, (-) nose pain, (-) nose congestion, (-) throat pain, (-) Throat swelling, (-) mouth pain, (-) tooth pain, (-) mouth swelling, (-) other documentation Respiratory: (-) cough, (-) orthopnea, (-) short of breath, (-) stridor, (-) wheezing, (-) other documentation Cardiovascular: (-) chest pain, (-) edema, (-) palpitations, (-) syncope, (-) dyspnea on exertion, (-) other documentation Gastrointestinal/Abdominal: (-) nausea, (-) vomiting, (-) diarrhea, (-) abdominal pain, (-) abdominal distention, (-) constipation, (-) rectal bleeding, (-) dark stool/melena, (-) other documentation Genitourinary: (-) vaginal discharge, (-) vaginal bleeding, (-) dysuria, (-) frequency, (-) hematuria, (-) pain, (-) other documentation Musculoskeletal: (-) Neck pain, (-) back pain, (-) Flank Pain, (-) joint pain, (-) joint swelling, (-) muscle pain, (-) muscle stiffness, (-) gout, (-) other documentation Skin: (+) contusion Physical Exam General Appearance: (+) mild distress Orientation: (+) alert Head/Face Trauma: No Face Comment The area that she points to for a bump on the back of her head is the parietal occipital area on the right and possibly there is a remnant of a healed contusion there. The skin is intact Eye: bilateral eye normal inspection, bilateral eye PERRL, bilateral eye EOMI Ear, Nose, Throat: (+) hearing grossly normal, (+) normal ENT inspection, (+) moist mucous membraine Neck: (+) normal inspection, (+) supple, (+) full range of motion Respiratory: (+) chest non-tender, (+) lungs clear, (+) well ventilated Heart: (+) regular, (+) no gallop Vascular: (+) edema Vascular Comment Bilateral lower extremities have mild edema. They are slightly erythematous. The edema is only slightly pitting. Gastrointestinal: (+) soft, (+) non-tender, (+) bowel sound present Back: (+) no CVA tenderness, (+) no vertebral tenderness Back Comment Patient has a lipoma in between her shoulder blades on her back. The mass is nontender firm and mobile. Results Laboratory and Microbiology Lab and Micro Result Laboratory Tests Test 06/19/25 20:10 06/19/25 20:25 White Blood Count 6.7 K/uL (4.8-10.8) Red Blood Count 3.96 MIL/uL (4.00-5.50) L Hemoglobin 11.1 g/dL (12.0-16.0) L Hematocrit 35.2 % (36-48) L Mean Corpuscular Volume 88.9 fL (79-99) Mean Corpuscular Hemoglobin 28.0 pg (27.0-33.0) Mean Corpuscular Hemoglobin Concent 31.5 g/dL (32.0-36.0) L Red Cell Distribution Width 15.1 % (11.0-15.5) Platelet Count 272 K/uL (130-400) Mean Platelet Volume 11.7 fL (7.5-10.5) H Immature Granulocyte % (Auto) 0.3 % (0-1) Neutrophils (%) (Auto) 51.3 % (40.0-77.0) Lymphocytes (%) (Auto) 35.9 % (21.0-51.0) Monocytes (%) (Auto) 9.2 % (3.0-13.0) Eosinophils (%) (Auto) 3.0 % (0.0-8.0) Basophils (%) (Auto) 0.3 % (0.0-5.0) Neutrophils # (Auto) 3.4 K/uL (1.8-7.7) Lymphocytes # (Auto) 2.4 K/uL (1.0-4.8) Monocytes # (Auto) 0.6 K/uL (0.1-1.0) Eosinophils # (Auto) 0.20 K/uL (0.00-0.70) Basophils # (Auto) 0.02 K/uL (0.00-0.20) Absolute Immature Granulocyte (auto 0.02 K/uL (0-1) Nucleated Red Blood Cells 0.0 % (0.0-0.19) Sodium Level 141 mmol/L (136-145) Potassium Level 4.4 mmol/L (3.5-5.1) Chloride Level 105 mmol/L (101-111) Carbon Dioxide Level 26 mmol/L (21-32) Blood Urea Nitrogen 11 mg/dL (7-18) Creatinine 0.6 mg/dL (0.5-1.0) Glomerular Filtration Rate Calc 97 mL/min (>90) Random Glucose 95 mg/dL (70-105) Lactic Acid Level 2.0 mmol/L (0.8-2.5) Total Calcium 8.5 mg/dL (8.5-10.1) Magnesium Level 2.10 mg/dL (1.80-2.40) Total Bilirubin 0.3 mg/dL (0.2-1.0) Aspartate Amino Transf (AST/SGOT) 39 U/L (10-37) H Alanine Aminotransferase (ALT/SGPT) 24 U/L (12-78) Alkaline Phosphatase 132 U/L (50-136) Troponin I High Sensitivity 7 ng/L (4-50) B-Type Natriuretic Peptide 54 pg/mL (0-100) Total Protein 6.7 g/dL (6.0-8.3) Albumin 3.3 g/dL (3.5-5.0) L Urine Color COLORLESS (YELLOW) Urine Appearance CLEAR (CLEAR) Urine pH 7.0 (5.0-8.0) Urine Specific [place] 1.008 (1.001-1.031) Urine Protein NEGATIVE mg/dL (NEGATIVE) Urine Glucose (UA) NEGATIVE mg/dL (NEGATIVE) Urine Ketones NEGATIVE mg/dL (NEGATIVE) Urine Occult Blood NEGATIVE (NEGATIVE) Urine Nitrate NEGATIVE (NEGATIVE) Urine Bilirubin NEGATIVE mg/dL (NEGATIVE) Urine Urobilinogen 0.2 mg/dL (0.2-1.0) Urine Leukocyte Esterase NEGATIVE [place]/uL MDM MDM: Differential diagnosis: CHF, venous insufficiency, lymphedema, cellulitis, back lipoma, Rationale: Tests considered and ordered secondary to shared decision making include: Previous outside records reviewed: Old ER visits. Risk of complication and/or morbidity or mortality of patient management: None Medications-Per medication reconciliation Need for hospitalization: Patient does meet criteria for hospitalization. Need for emergency major/minor surgery: No There are no social concerns with this patient. Prescription drug management Prescriptions will include symptomatic care Patient's prior external medical records from other ER visits were reviewed by me as indicated. Prior testing and results from previous visits were reviewed. Prior tests were taken into account with medical decision making and resource utilization, independent historian/historians were used to obtain complete medical history. I independently interpreted the test that were performed, results were reviewed by me and considered findings on radiology if ordered. Patient's CBC chemistry panel and UA are all normal. The patient is not in CHF and does not have evidence of fluid overload. She needs to follow up with her primary care physician to discover the cause of her bilateral lower extremity edema. I will discharge her on some oral antibiotics for the cellulitis. ED Course Orders Procedure Category Date Status Time 12 Lead Ekg Tracing- EKG 06/19/25 Logged Technical 19:37 B-Type Natriuretic LAB 06/19/25 Complete Peptide 19:37 Comprehensive LAB 06/19/25 Complete Metabolic Panel 19:37 Cbc With Differential LAB 06/19/25 Complete 19:37 Lactic Acid LAB 06/19/25 Complete 19:37 Magnesium LAB 06/19/25 Complete 19:37 Troponin I High LAB 06/19/25 Complete Sensitivity 19:37 Urinalysis Profile LAB 06/19/25 Complete 19:37 Cefazolin Sodium 1 Gm PHA 06/19/25 In Process Vial (Ancef 1 Gm V 19:37 Lactated Ringers PHA 06/19/25 In Process 1000ml (Lactated 19:37 Ketorolac PHA 06/19/25 In Process Tromethamine 30mg/Ml 20:00 Current Medications Medications (Trade) Dose Ordered Sig/[place] Route PRN Reason Start Time Stop Time Status Last Admin Dose Admin Cefazolin Sodium (ANCEF 1 gm vial) 1 gm ONCE IVP 06/19/25 19:37 06/19/25 23:59 06/19/25 20:39 Ketorolac Tromethamine (toRADol) 30 mg ONCE IVP 06/19/25 20:00 06/19/25 23:59 06/19/25 20:39 Lactated Ringer's (Lactated Ringers 1000ml) 1,000 ml BOLUS IV 06/19/25 19:37 06/19/25 23:59 06/19/25 20:38 Vital Signs Date Time Temp Pulse Resp B/P (MAP) Pulse Ox O2 Delivery O2 Flow Rate FiO2 06/19/25 21:09 77 16 141/69 98 Room Air* 0 21 06/19/25 19:21 98.4 85 16 141/75 100 Room Air 0 DX & DISP Disposition: Discharge Departure Impression: Primary Impression: Lipoma of neck Additional Impressions: Cellulitis of both lower extremities, Edema of both lower extremities Condition: Stable Scripts Amoxicillin (Amoxicillin) 500 Mg Capsule 1 CAP PO TID for 10 Days, #30 CAP 0 Refills Prov: JUDD HAMMOND MD 06/19/25 Additional Instructions: You do have swelling in your bilateral lower extremities. There maybe an associated bacterial infection. I have written for some antibiotics for you to take to clear up the infection. You need to follow-up with your primary care physician to workup the cause of your bilateral lower extremity swelling. It is not due to a condition in your heart or due to fluid overload. It maybe a problem with your lymph system it maybe a problem with your veins. Referrals: MARAL DUONG MD (PCP) JUDD HAMMOND MD Jun 19, 2025 19:56
[2025-06-19] MEDS: LACTATED RINGERS 1000ML IV SCH (20:38)
[2025-06-19 20:39] LABS: IMMATURE GRANULOCYTE ABSOLUTE 0.02 K/uL (0-1); NUCLEATED RED BLOOD CELLS 0.0 % (0.0-0.19); PLATELET COUNT (AUTO) 272 K/uL (130-400); RED BLOOD CELL COUNT(AUTO) 3.96 MIL/uL (4.00-5.50); RED CELL DISTRIBUTION WIDTH 15.1 % (11.0-15.5); WHITE BLOOD COUNT (AUTO) 6.7 K/uL (4.8-10.8)
[2025-06-19 20:40] LABS: APPEARANCE,URINE CLEAR (CLEAR); GLUCOSE, URINE (UA) NEGATIVE (NEGATIVE); LEUKOCYTE ESTERASE ,URINE NEGATIVE Leu/uL (NEGATIVE); NITRATE,URINE NEGATIVE (NEGATIVE); OCCULT BLOOD,URINE NEGATIVE (NEGATIVE)
[2025-06-19 20:41] LABS: ADD UA MICROSCOPIC NO
[2025-06-19 20:43] LABS: CREATININE 0.6 mg/dL (0.5-1.0); GLOMERULAR FILTR. RATE CALC 97.0 mL/min (>90); GLUCOSE,RANDOM 95.0 mg/dL (70-105); SODIUM SERUM 141.0 mmol/L (136-145); UREA NITROGEN, BLOOD 11.0 mg/dL (7-18)
[2025-06-19 20:52] LABS: ASPARTATE AMINOTRANSFERASE 39.0 U/L (10-37); TOTAL PROTEIN, SERUM 6.7 g/dL (6.0-8.3)
--- NOTE | 2025-06-19 21:04 | NUR ---
PATIENTS DAUGHTER AT BEDSIDE, REPORTS PATIENT HAS NOT BEEN TAKING HER MEDICATIONS, HAS NOT BEEN SLEEPING, HAS A PAST HISTORY OF SUICIDAL IDEATION/ATTEMPT, IS USUALLY SEEN AT [facility] WHERE THEY KNOW HER WELL. PATIENT DENIES SI/HI, DENIES A/V HALLUCINATIONS AT THIS TIME.
[2025-06-19 21:09] VITALS: BP 141/69; PULSE 77; RESP 16; O2SAT 98
[2025-06-19] MEDS ORDERED: AMOX500C2 PO (21:31)
--- NOTE | 2025-06-20 06:49 | EKG ---
[facility] Test Date: 2025-06-19 Test Time: 19:57:35 Pat Name: NAZARIO NATH Department: ED Room: Gender: F [employer] Worker: [id number] : 1955 Requested By: JUDD HAMMOND Order Number: [id number] Reading MD: Nitin Reed Measurements Intervals [place] Rate: 72 P: 5 CO: 129 QRS: -34 QRSD: 98 T: 18 QT: 415 QTc: 454 Interpretive Statements Sinus rhythm Left axis deviation Compared to ECG 02/03/2025 11:31:51 Left-axis deviation now present Sinus tachycardia no longer present Myocardial infarct finding no longer present T-wave abnormality no longer present Electronically Signed On 06-20-2025 10:56:30 CDT by Nitin Reed Please click the below link to view image of tracing.
== END 2025-06-19 21:40 | disposition home or self-care (01) ==
LOC: EDH 19:19
DX: D17.0 Benign lipomatous neoplasm of skin and subcutaneous tissue of head, face and neck (principal); L03.115 Cellulitis of right lower limb; L03.116 Cellulitis of left lower limb; E11.9 Type 2 diabetes mellitus without complications; E78.00 Pure hypercholesterolemia, unspecified; F03.93 Unspecified dementia, unspecified severity, with mood disturbance; F31.9 Bipolar disorder, unspecified; I11.0 Hypertensive heart disease with heart failure; I50.9 Heart failure, unspecified; Z79.899 Other long term (current) drug therapy; Z85.42 Personal history of malignant neoplasm of other parts of uterus; Z91.81 History of falling
CPT/HCPCS: 99284; 96365; 96375; 83735; 84484; 80053; 83880; 85025; 83605; 81003; 36415; 93005; J1885; J7120; J0690

== ENCOUNTER 2025-07-01 02:43 | Emergency (ER) | payer OTHER ==
[~2025-07-01] VITALS: Ht 149.9 cm; Wt 55.8 kg
[~2025-07-01 02:43] MED LIST changes: +AMOX500C2 PO
[2025-07-01 03:10] LABS: IMMATURE GRANULOCYTE ABSOLUTE 0.02 K/uL (0-1); NUCLEATED RED BLOOD CELLS 0.0 % (0.0-0.19); PLATELET COUNT (AUTO) 213 K/uL (130-400); RED BLOOD CELL COUNT(AUTO) 3.89 MIL/uL (4.00-5.50); RED CELL DISTRIBUTION WIDTH 14.6 % (11.0-15.5); WHITE BLOOD COUNT (AUTO) 9.7 K/uL (4.8-10.8)
[2025-07-01 03:16] LABS: CREATININE 0.6 mg/dL (0.5-1.0); GLOMERULAR FILTR. RATE CALC 97.0 mL/min (>90); GLUCOSE,RANDOM 116.0 mg/dL (70-105); SODIUM SERUM 139.0 mmol/L (136-145); UREA NITROGEN, BLOOD 12.0 mg/dL (7-18)
[2025-07-01] MEDS: FAMOTIDINE 20MG VIAL IV ONE (03:28)
[2025-07-01] MEDS: LACTATED RINGERS 1000ML 1,000 ML IV ONE (03:28)
--- NOTE | 2025-07-01 03:36 | ERN ---
ED Note History of Present Illness Stated Complaint: C/O RASH WITH ITCHING TO BODY Chief Complaint: Hypotension Time Seen by : 03:05 Dictation: This is a 69-year-old female with multiple medical problems presented to the emergency room complaining of rash that is itching all over her body arms. She stated that this rash which is likes small spots started yesterday. She denied any fever chills or rigors. I had changing any soaps or lotions. She also denied any bug bites in the house. She did state that she had mosquitos outside. She did not eat anything unusual. She denied any lip or tongue swelling. No history of any shortness of breath. She also denied any facial are periorbital swelling. Temperature 98.2 pulse 60 respirations 20 blood pressure 86/53 with a pulse oximetry of 100% on room air Her chronic medical problems include bipolar depression, dementia, diabetes mellitus type 2, hypertension, hypercholesterolemia, congestive heart failure, uterine cancer and chronic back pain Allergies: Coded Allergies: No Known Drug Allergies (Unverified Allergy, Unknown, 05/17/17) Home Meds Active Scripts Hydroxyzine HCl (Hydroxyzine HCl) 25 Mg Tablet, 1 TAB PO BID for itching for 10 Days, #20 TAB 0 Refills Prov:ANSLEY SINGH MD 07/01/25 Prednisone (Prednisone) 20 Mg Tablet, 1 TAB PO AD for 6 Days, #14 TAB 0 Refills TAKE 1 TAB BY MOUTH THREE TIMES PER DAY X3 DAYS, THEN TAKE 1 TAB BY MOUTH TWICE A DAY X2 DAYS, THEN TAKE 1 TAB BY MOUTH ONCE A DAY X1 DAY. Prov:ANSLEY SINGH MD 07/01/25 Amoxicillin (Amoxicillin) 500 Mg Capsule, 1 CAP PO TID for 10 Days, #30 CAP 0 Refills Prov:JUDD HAMMOND MD 06/19/25 Nitrofurantoin/Nitrofuran Mac (Macrobid) 100 Mg Cap, 1 CAP PO BID for 5 Days, #10 CAP 0 Refills Prov:THAD GERBER DO 08/11/24 Zolpidem Tartrate (Ambien) 5 Mg Tablet, 1 TAB PO HSPRN PRN for sleep for 14 Days, #14 TAB 0 Refills Prov:THAD GERBER DO 08/11/24 Sulfamethoxazole/Trimethoprim (Bactrim Ds Tablet) 800 Mg-160 Mg Tablet, 1 TAB PO BID for 7 Days, #14 TAB Prov:CHAD DEL REAL MD 06/05/24 Ondansetron (Ondansetron Odt) 4 Mg Tab.rapdis, 4 MG PO TID for NAUSEA, #15 TAB Prov:NADINE MANUEL MD 07/26/22 Loperamide HCl (Loperamide) 2 Mg Capsule, 2 MG PO QID for LOOSE STOOL, #30 CAP Prov:NADINE MANUEL MD 07/26/22 Acetaminophen (Acetaminophen) 500 Mg Tablet, 1000 MG PO QID for FEVER, #50 TAB Prov:NADINE MANUEL MD 07/26/22 Pantoprazole Sodium (Protonix) 40 Mg Ectab, 40 MG PO DAILY for 30 Days, #30 TAB.EC Prov:MARCIA BAKER MD 07/25/22 Tramadol Hcl (Tramadol HCl) 50 Mg Tablet, 50 MG PO BID for 5 Days, #10 TAB Prov:ERICA ESTRELLA NP 09/06/21 Lorazepam (Ativan) 1 Mg Tablet, 1 MG PO DAILY for 2 Days, #2 TAB Take one or two as needed qHS Prov:TIESHA CHEEK MD 08/18/21 Reported Medications Cromolyn Sodium (Nasal Allergy [place]) 13 Ml [place].pump, 13 ML NS AM 05/17/17 Vitamin E Mixed (Vitamin E) 400 Unit Capsule, 400 UNIT PO AM, CAP 05/17/17 Tramadol Hcl (Tramadol HCl) 50 Mg Tablet, 50 MG PO Q4HPRN, TAB 05/17/17 Paroxetine HCl (Paroxetine HCl) 20 Mg Tablet, 20 MG PO AM, TAB 05/17/17 Oxybutynin Chloride (Ditropan Xl) 10 Mg Tab.er.24, 10 MG PO AM 05/17/17 Meclizine HCl (Meclizine HCl) 25 Mg Tablet, 25 MG PO TID, TAB 05/17/17 Loratadine (Loratadine) 10 Mg Capsule, 10 MG PO AM, CAP 05/17/17 Lisinopril/Hydrochlorothiazide (Lisinopril-Hctz 10-12.5 mg Tab) 1 Each Tablet, 1 EACH PO AM, TAB 05/17/17 Gabapentin (Gabapentin) 600 Mg Tablet, 600 MG PO TID, TAB 05/17/17 Ezetimibe (Ezetimibe) 10 Mg Tablet, 10 MG PO AM, TAB 05/17/17 Atorvastatin Calcium (Atorvastatin Calcium) 40 Mg Tablet, 40 MG PO AM, TAB 05/17/17 Metoprolol Succinate (Metoprolol Succinate) 50 Mg Tab.er.24h, 50 MG PO AM, TAB 05/17/17 Alprazolam (Alprazolam) 2 Mg Tablet, 2 MG PO BID, TAB 05/17/17 Past Medical History Past Medical History: Arthritis, CHF, Dementia, Diabetes-Type II, High Cholesterol, Hypertension Additional Past Medical Hx: uterine ca; CHRONIC BACK PAIN, poor historian of health Surgical History: Other Surgical History Other: BACK SX PSYCH History: bipolar Family History: Negative Social History: Negative, Lives with family History: Not Applicable RN Note Reviewed/Agreed w/PFSH: Yes Review of System Dictation Constitutional: Negative for fever,chills, and weight loss Eyes: Negative for injury, pain,redness, and discharge ENT: Negative for injury,pain or swelling Cardiovascular: Negative for chest pain, palpitations, and edema Respiratory: Negative for shortness of breath, cough, and wheezing, Abdomen/GI: Negative for abdominal pain, nausea, vomiting, diarrhea, and constipation Back: Negative for injury and pain : Negative for injury, bleeding and discharge MS/Extremity: Negative for injury and deformity Skin: Positive for rash, and itching Neuro: Negative for headache, weakness, numbness, tingling, and seizure Psych: Negative for suicide ideation, homicidal ideation, and hallucinations Initial Vital Sign VS Vital Signs Date Time Temp Pulse Resp B/P (MAP) Pulse Ox O2 Delivery O2 Flow Rate FiO2 07/01/25 02:44 98.2 60 20 86/53 100 Room Air 07/01/25 03:09 0 21 Physical Exam Dictation General: awake, alert, NAD Head/Face: Normocephalic, atraumatic Eyes: PERRL, EOMI, vision at baseline ENT: oral cavity clear, TMs clear, no signs of infection Neck: Trachea midline, supple, no nuchal rigidity Cardiovascular: RRR, normal S1/S2, No MRGs, no JVD Respiratory: CTAB, no respiratory distress, No rales or wheezes Abdomen: Soft, non-tender, non-distended, normal bowel sounds, no guarding or rebound. Skin: Warm, dry, normal turgor, diffuse small urticaria and target lesions, some areas that she scratched have excoriated-distributed over the extremities trunk MS/Extremity: Pulses equal, no cyanosis, neurovascular intact, FROM Neuro: COAx4, GCS 15, strength 5/5, CN 2-12 intact, normal cerebellar exam, normal gait, Psych: Normal behavior, mood, and affect normal Extremities-trace edema without any palpable cords, Homans sign is negative Results (Laboratory/Radiology) Laboratory/Radiology Laboratory Tests Test 07/01/25 03:01 07/01/25 04:20 07/01/25 04:25 White Blood Count 9.7 K/uL (4.8-10.8) Red Blood Count 3.89 MIL/uL (4.00-5.50) L Hemoglobin 10.8 g/dL (12.0-16.0) L Hematocrit 34.4 % (36-48) L Mean Corpuscular Volume 88.4 fL (79-99) Mean Corpuscular Hemoglobin 27.8 pg (27.0-33.0) Mean Corpuscular Hemoglobin Concent 31.4 g/dL (32.0-36.0) L Red Cell Distribution Width 14.6 % (11.0-15.5) Platelet Count 213 K/uL (130-400) Mean Platelet Volume 11.2 fL (7.5-10.5) H Immature Granulocyte % (Auto) 0.2 % (0-1) Neutrophils (%) (Auto) 66.0 % (40.0-77.0) Lymphocytes (%) (Auto) 23.1 % (21.0-51.0) Monocytes (%) (Auto) 8.8 % (3.0-13.0) Eosinophils (%) (Auto) 1.7 % (0.0-8.0) Basophils (%) (Auto) 0.2 % (0.0-5.0) Neutrophils # (Auto) 6.4 K/uL (1.8-7.7) Lymphocytes # (Auto) 2.2 K/uL (1.0-4.8) Monocytes # (Auto) 0.9 K/uL (0.1-1.0) Eosinophils # (Auto) 0.16 K/uL (0.00-0.70) Basophils # (Auto) 0.02 K/uL (0.00-0.20) Absolute Immature Granulocyte (auto 0.02 K/uL (0-1) Nucleated Red Blood Cells 0.0 % (0.0-0.19) Sodium Level 139 mmol/L (136-145) Potassium Level 3.3 mmol/L (3.5-5.1) L Chloride Level 101 mmol/L (101-111) Carbon Dioxide Level 28 mmol/L (21-32) Blood Urea Nitrogen 12 mg/dL (7-18) Creatinine 0.6 mg/dL (0.5-1.0) Glomerular Filtration Rate Calc 97 mL/min (>90) Random Glucose 116 mg/dL (70-105) H Total Calcium 8.2 mg/dL (8.5-10.1) L Influenza Type A Antigen Negative For Type A Influenza Type B Antigen Negative For Type B SARS-CoV-2 Antigen (Rapid) PRESUMPTIVE NEGATIVE Group A Streptococcus Rapid negative (NEGATIVE) Urine Color LIGHT-YELLOW (YELLOW) Urine Appearance CLEAR (CLEAR) Urine pH 6.5 (5.0-8.0) Urine Specific Barry 1.007 (1.001-1.031) Urine Protein NEGATIVE mg/dL (NEGATIVE) Urine Glucose (UA) NEGATIVE mg/dL (NEGATIVE) Urine Ketones NEGATIVE mg/dL (NEGATIVE) Urine Occult Blood NEGATIVE (NEGATIVE) Urine Nitrate NEGATIVE (NEGATIVE) Urine Bilirubin NEGATIVE mg/dL (NEGATIVE) Urine Urobilinogen 0.2 mg/dL (0.2-1.0) Urine Leukocyte Esterase 75 Allen/uL (NEGATIVE) H Urine RBC 0-1 /HPF (0-1) Urine WBC 2-5 /HPF (0-1) H Urine Squamous Epithelial Cells RARE /HPF (0-2) Urine Bacteria None /HPF (None Seen) Labs Reviewed?: Yes ED Course ED Course Orders Procedure Category Date Status Time Basic Metabolic Panel LAB 07/01/25 Complete 03:03 Lactated Ringers PHA 07/01/25 Complete 1000ml (Lactated 03:30 Methylprednisolone PHA 07/01/25 Complete Succ 125mg (Solu-Medr 03:30 Diphenhydramine Hcl PHA 07/01/25 Complete (Benadryl Inj) 03:30 Famotidine 20mg Vial PHA 07/01/25 Complete (Pepcid 20mg Vial) 03:30 Cbc With Differential LAB 07/01/25 Complete 03:03 Influenza Type A & B, LAB 07/01/25 Complete Rapid 03:36 Covid19 (Sars Antigen LAB 07/01/25 Complete Rapid) 03:36 Rapid (Group A Strep) LAB 07/01/25 Complete 03:36 Urinalysis Profile LAB 07/01/25 Complete 04:21 Culture Urine CLAU 07/01/25 In Process 04:42 Current Medications Medications (Trade) Dose Ordered Sig/[place] Route PRN Reason Start Time Stop Time Status Last Admin Dose Admin Diphenhydramine HCl (BENAdryl INJ) 50 mg ONCE ONCE IV 07/01/25 03:30 07/01/25 03:31 DC 07/01/25 03:28 Famotidine (Pepcid 20mg Vial) 20 mg ONCE ONCE IV 07/01/25 03:30 07/01/25 03:31 DC 07/01/25 03:28 Lactated Ringer's 1,000 ml @ 0 mls/hr ONCE ONCE IV 07/01/25 03:30 07/01/25 03:31 DC 07/01/25 03:28 Methylprednisolone Sodium Succinate (Solu-medROL 125MG) 125 mg ONCE ONCE IVP 07/01/25 03:30 07/01/25 03:31 DC 07/01/25 03:28 Vital Signs Date Time Temp Pulse Resp B/P (MAP) Pulse Ox O2 Delivery O2 Flow Rate FiO2 07/01/25 03:09 98.4 75 18 115/60 99 Room Air* 0 21 07/01/25 02:44 98.2 60 20 86/53 100 Room Air We will perform diagnostic labs, and administer medications according to the patient's complaint. Once the results are available, will review and personally interpreted the labs to rule out any acute life-threatening emergency the trach require immediate intervention and treatment. I will then re-evaluate the patient after treatment and diagnostic exams have return to determine whether the patient requires any further testing, can safely be discharged home or need further admission to hospital for additional treatment and evaluation. Medical Decision Making MDM Differential diagnosis: Urticaria, allergic rash secondary to medication, her mental allergens, infectious, insect bites This is a 69-year-old female with multiple medical problems presented to the emergency room complaining of rash that is itching all over her body arms. She stated that this rash which is likes small spots started yesterday. She denied any fever chills or rigors. I had changing any soaps or lotions. She also denied any bug bites in the house. She did state that she had mosquitos outside. She did not eat anything unusual. She denied any lip or tongue swelling. No history of any shortness of breath. She also denied any facial are periorbital swelling. Temperature 98.2 pulse 60 respirations 20 blood pressure 86/53 with a pulse oximetry of 100% on room air Her chronic medical problems include bipolar depression, dementia, diabetes mellitus type 2, hypertension, hypercholesterolemia, congestive heart failure, uterine cancer and chronic back pain 3:30 a.m. CBC shows a hemoglobin of 10.8 BNP 7 shows a potassium of 3.3 otherwise acceptable. 4:40 a.m. urinalysis is unremarkable. Viral swabs for COVID and influenza are negative On reassessment after gentle hydration steroid Benadryl and Pepcid patient feels significantly improved and smiling and wants to be discharged to home with same treatment Rationale: Tests considered and ordered secondary to shared decision making include: Previous outside records reviewed: Old ER visits. Risk of complication and/or morbidity or mortality of patient management: None Medications-Per medication reconciliation Need for hospitalization: Patient does not meet criteria for hospitalization. Need for emergency major/minor surgery: No There are no social concerns with this patient. Prescription drug management Prescriptions will include symptomatic care Patient's prior external medical records from other ER visits were reviewed by me as indicated. Prior testing and results from previous visits were reviewed. Prior tests were taken into account with medical decision making and resource utilization, independent historian/historians were used to obtain complete medical history. I independently interpreted the test that were performed, results were reviewed by me and considered findings on radiology if ordered. Medical management and examination interpretation discussions were had by me with other qualified healthcare professionals as indicated for the patient's care. Problem List Problem List: (1) Erythema multiforme (2) Hypotension (3) Urticaria DX & DISP Disposition: Discharge Departure Impression: Primary Impression: Erythema multiforme Additional Impressions: Hypotension, Urticaria Condition: Stable Scripts Hydroxyzine HCl (Hydroxyzine HCl) 25 Mg Tablet 1 TAB PO BID for itching for 10 Days, #20 TAB 0 Refills Prov: ANSLEY SINGH MD 07/01/25 Prednisone (Prednisone) 20 Mg Tablet 1 TAB PO AD for 6 Days, #14 TAB 0 Refills TAKE 1 TAB BY MOUTH THREE TIMES PER DAY X3 DAYS, THEN TAKE 1 TAB BY MOUTH TWICE A DAY X2 DAYS, THEN TAKE 1 TAB BY MOUTH ONCE A DAY X1 DAY. Prov: ANSLEY SINGH MD 07/01/25 Additional Instructions: Patient and the caregiver have been informed of all the diagnostic tests and the imaging conducted during the today's visit to the emergency room and has verbalized understanding of the results I have personally reviewed and interpreted all diagnostic exams performed here in the ER today as well as the vital signs documented by the nursing staff. The patient is now being discharged to home and should follow up with the primary care physician or the specialist as directed by the ER staff. Referrals: MATEO TURNER MD (PCP) ANSLEY SINGH MD Jul 01, 2025 03:36
[2025-07-01 04:39] LABS: APPEARANCE,URINE CLEAR (CLEAR); GLUCOSE, URINE (UA) NEGATIVE (NEGATIVE); LEUKOCYTE ESTERASE ,URINE 75 Leu/uL (NEGATIVE); NITRATE,URINE NEGATIVE (NEGATIVE); OCCULT BLOOD,URINE NEGATIVE (NEGATIVE)
[2025-07-01 04:42] LABS: ADD UA MICROSCOPIC YES
[2025-07-01 04:43] LABS: RAPID GROUP A STREP negative (NEGATIVE)
[2025-07-01 04:46] LABS: SQUAMOUS EPITHELIAL CELL,UR RARE /HPF (0-2)
[2025-07-01 04:54] LABS: COVID19 (SARS ANTIGEN RAPID) PRESUMPTIVE NEGATIVE (NEGATIVE); INFLUENZA TYPE A Negative For Type A (NEGATIVE); INFLUENZA TYPE B Negative For Type B (NEGATIVE)
[2025-07-01] MEDS ORDERED: HYDR-3421 PO (05:10)
[2025-07-01] MEDS ORDERED: PRED20TA3 PO (05:10)
[2025-07-01 06:01] VITALS: BP 121/56; PULSE 70; RESP 18; TEMP 98.5; O2SAT 100
== END 2025-07-01 06:19 | disposition home or self-care (01) ==
LOC: EDH 02:43
DX: L50.9 Urticaria, unspecified (principal); L51.9 Erythema multiforme, unspecified; E78.00 Pure hypercholesterolemia, unspecified; E11.9 Type 2 diabetes mellitus without complications; F03.93 Unspecified dementia, unspecified severity, with mood disturbance; F31.9 Bipolar disorder, unspecified; I11.0 Hypertensive heart disease with heart failure; I50.9 Heart failure, unspecified; M19.90 Unspecified osteoarthritis, unspecified site; Z20.822 Contact with and (suspected) exposure to COVID-19; Z79.899 Other long term (current) drug therapy; Z85.42 Personal history of malignant neoplasm of other parts of uterus
CPT/HCPCS: 99284 ×2; 96374; 70450; 96375; 87426; 80076; 84484; 80048 ×2; 85025 ×2; 87086; 87880; 87804 ×2; 81003; 81001; 36415 ×2; 93005; J2919; J7120; J1200; J1308

== ENCOUNTER 2025-07-01 20:51 | Emergency (ER) | payer OTHER ==
[~2025-07-01] VITALS: Ht 149.9 cm; Wt 56.7 kg
[~2025-07-01 20:51] MED LIST changes: +HYDR-3421 PO; +PRED20TA3 PO
--- NOTE | 2025-07-01 21:15 | ERN ---
ED Note History of Present Illness Stated Complaint: C/O HEADACHE; Chief Complaint: Headache Time Seen by MD: 21:05 Time Seen by Midlevel: 21:30 Dictation: Ms. Nath is a 69-year-old female with history of hypertension, hyperlipidemia, CHF, type 2 diabetes, arthritis, depression, anxiety, and dementia who presented to the emergency department this evening for evaluation of headache. Patient is very difficult to obtain history from as she is extremely talkative and restless. She is hyperverbal, speaking rapidly and continuously with frequent topic changes. She states she is experiencing posterior headache and neck pain with anxiety. She mentions that she was seen yesterday for a rash to her body and arms which is now resolving. She states that she was prescribed prednisone and hydroxyzine which she states only helped her yesterday. She denies fever, chills, shortness of breath, cough, chest pain, palpitations, edema, abdominal pain, nausea, vomiting, hematemesis, constipation, diarrhea, melena, hematochezia, dysuria, dizziness, or focal weakness/paresthesia. UPDATE: Initial blood pressure at triage was 203/101. BP was reassessed at the time of my assessment while seated and silent; 116/66. PCP: Dr. Nabeel Wheeler Allergies: Coded Allergies: No Known Drug Allergies (Unverified Allergy, Unknown, 05/17/17) Home Meds Active Scripts Hydroxyzine HCl (Hydroxyzine HCl) 25 Mg Tablet, 1 TAB PO BID for itching for 10 Days, #20 TAB 0 Refills Prov:ANSLEY VENTURA MD 07/01/25 Prednisone (Prednisone) 20 Mg Tablet, 1 TAB PO AD for 6 Days, #14 TAB 0 Refills TAKE 1 TAB BY MOUTH THREE TIMES PER DAY X3 DAYS, THEN TAKE 1 TAB BY MOUTH TWICE A DAY X2 DAYS, THEN TAKE 1 TAB BY MOUTH ONCE A DAY X1 DAY. Prov:ANSLEY VENTURA MD 07/01/25 Amoxicillin (Amoxicillin) 500 Mg Capsule, 1 CAP PO TID for 10 Days, #30 CAP 0 Refills Prov:JUDD HAMMOND MD 06/19/25 Nitrofurantoin/Nitrofuran Mac (Macrobid) 100 Mg Cap, 1 CAP PO BID for 5 Days, #10 CAP 0 Refills Prov:THAD GERBER DO 08/11/24 Zolpidem Tartrate (Ambien) 5 Mg Tablet, 1 TAB PO HSPRN PRN for sleep for 14 Days, #14 TAB 0 Refills Prov:THAD GERBER 08/11/24 Sulfamethoxazole/Trimethoprim (Bactrim Ds Tablet) 800 Mg-160 Mg Tablet, 1 TAB PO BID for 7 Days, #14 TAB Prov:CHAD DEL REAL MD 06/05/24 Ondansetron (Ondansetron Odt) 4 Mg Tab.rapdis, 4 MG PO TID for NAUSEA, #15 TAB Prov:NADINE MANUEL MD 07/26/22 Loperamide HCl (Loperamide) 2 Mg Capsule, 2 MG PO QID for LOOSE STOOL, #30 CAP Prov:NADINE MANUEL MD 07/26/22 Acetaminophen (Acetaminophen) 500 Mg Tablet, 1000 MG PO QID for FEVER, #50 TAB Prov:NADINE MANUEL MD 07/26/22 Pantoprazole Sodium (Protonix) 40 Mg Ectab, 40 MG PO DAILY for 30 Days, #30 TAB.EC Prov:MARCIA BAKER MD 07/25/22 Tramadol Hcl (Tramadol HCl) 50 Mg Tablet, 50 MG PO BID for 5 Days, #10 TAB Prov:ERICA ESTRELLA NP 09/06/21 Lorazepam (Ativan) 1 Mg Tablet, 1 MG PO DAILY for 2 Days, #2 TAB Take one or two as needed qHS Prov:TIESHA CHEEK MD 08/18/21 Reported Medications Cromolyn Sodium (Nasal Allergy [place]) 13 Ml [place].pump, 13 ML NS AM 05/17/17 Vitamin E Mixed (Vitamin E) 400 Unit Capsule, 400 UNIT PO AM, CAP 05/17/17 Tramadol Hcl (Tramadol HCl) 50 Mg Tablet, 50 MG PO Q4HPRN, TAB 05/17/17 Paroxetine HCl (Paroxetine HCl) 20 Mg Tablet, 20 MG PO AM, TAB 05/17/17 Oxybutynin Chloride (Ditropan Xl) 10 Mg Tab.er.24, 10 MG PO AM 05/17/17 Meclizine HCl (Meclizine HCl) 25 Mg Tablet, 25 MG PO TID, TAB 05/17/17 Loratadine (Loratadine) 10 Mg Capsule, 10 MG PO AM, CAP 05/17/17 Lisinopril/Hydrochlorothiazide (Lisinopril-Hctz 10-12.5 mg Tab) 1 Each Tablet, 1 EACH PO AM, TAB 05/17/17 Gabapentin (Gabapentin) 600 Mg Tablet, 600 MG PO TID, TAB 05/17/17 Ezetimibe (Ezetimibe) 10 Mg Tablet, 10 MG PO AM, TAB 05/17/17 Atorvastatin Calcium (Atorvastatin Calcium) 40 Mg Tablet, 40 MG PO AM, TAB 05/17/17 Metoprolol Succinate (Metoprolol Succinate) 50 Mg Tab.er.24h, 50 MG PO AM, TAB 05/17/17 Alprazolam (Alprazolam) 2 Mg Tablet, 2 MG PO BID, TAB 05/17/17 Past Medical History Past Medical History: Unknown Additional Past Medical Hx: uterine ca; CHRONIC BACK PAIN, poor historian of health Surgical History: Unknown Surgical History Other: BACK SX PSYCH History: anxiety, depression Family History: Negative Social History: Negative, Lives with family History: Not Applicable RN Note Reviewed/Agreed w/PFSH: Yes Review of System Dictation REVIEW OF SYSTEMS: CONSTITUTIONAL: Patient denies fevers, chills, sweats and weight changes. EYES: Patient denies any visual symptoms. EARS, NOSE, AND THROAT: No difficulties with hearing. No symptoms of rhinitis or sore throat. CARDIOVASCULAR: Patient denies chest pains, palpitations, orthopnea and paroxysmal nocturnal dyspnea. Reports elevated blood pressure readings. RESPIRATORY: No dyspnea on exertion, no wheezing or cough. GI: No nausea, vomiting, diarrhea, constipation, abdominal pain, hematochezia or melena. : No urinary hesitancy or dribbling. No nocturia or urinary frequency. No abnormal urethral discharge. MUSCULOSKELETAL: No myalgias or arthralgias. NEUROLOGIC: No seizures. Patient denies numbness, tingling or weakness. Reports posterior headache/neck pain. PSYCHIATRIC: Patient denies problems with mood disturbance. Reports increased anxiety. ENDOCRINE: No excessive urination or excessive thirst. DERMATOLOGIC: She states she was treated earlier this morning for a pruritic rash to her body and arms; she was prescribed hydroxyzine and prednisone. She states these symptoms are resolving. Initial Vital Sign VS Vital Signs Date Time Temp Pulse Resp B/P (MAP) Pulse Ox O2 Delivery O2 Flow Rate FiO2 07/01/25 20:53 98.1 73 20 203/101 99 Room Air 07/02/25 00:00 0 21 Physical Exam Dictation Vital signs: Reviewed. Afebrile. Constitutional: Hyperverbal; speaking rapidly and continuously with frequent topic changes. Restless/unable to remain still. Head/Face: Normocephalic, atraumatic. Eyes: Periorbital areas with no swelling, redness, or edema. Lids and lashes are normal. Conjunctival injection is absent. Sclera anicteric. Pupils equal, round, reactive to light. ENT: Pinnas intact and no signs of trauma or erythema. Ear canals clear and no discharge. TMs no erythema. No nasal discharge or bleeding noted. Oropharynx with no exudate, redness, swelling, masses, exudates, or evidence of obstruction. Uvula midline. Mucous membranes moist. Neck: Trachea midline, no masses palpated, and no cervical lymphadenopathy. No swelling. Supple, full range of motion. Chest/Axilla: No tenderness, no crepitus, no paradoxical movement, no retractions. Cardiovascular: Regular rate, regular rhythm, no murmur, no gallops. Symmetric pulses. No peripheral edema. Hypertensive initially with blood pressure 203/101; repeat blood pressure while seated and silent 116/66. Respiratory: Respirations even and unlabored. Lung sounds clear; no wheezes, rales or rhonchi. Room air SpO2 98% Gastrointestinal: Inspection is normal. No distention is appreciated. Bowel sounds are normal. No mass or organomegaly . There is no tenderness. No rebound. No rigidity. No voluntary or involuntary guarding. No Paulino's sign. Neurological: Normal speech, gross motor function intact, gross sensory function intact. No focal weakness/Paresthesia. No dysphasia/dysarthria. No confusion. NIHSS=0 Musculoskeletal/Extremities: All extremities have full range of motion, no pain or tenderness on palpation. Symmetric pulses. Integumentary: Intact. Skin is normal color, warm and dry. Cap refill less than 3 seconds. No rash Psych: Affect was elevated with pressured speech. Results (Laboratory/Radiology) Laboratory/Radiology Laboratory Tests Test 07/01/25 21:32 07/02/25 00:56 White Blood Count 9.1 K/uL (4.8-10.8) Red Blood Count 4.23 MIL/uL (4.00-5.50) Hemoglobin 11.6 g/dL (12.0-16.0) L Hematocrit 38.0 % (36-48) Mean Corpuscular Volume 89.8 fL (79-99) Mean Corpuscular Hemoglobin 27.4 pg (27.0-33.0) Mean Corpuscular Hemoglobin Concent 30.5 g/dL (32.0-36.0) L Red Cell Distribution Width 14.5 % (11.0-15.5) Platelet Count 235 K/uL (130-400) Mean Platelet Volume 11.5 fL (7.5-10.5) H Immature Granulocyte % (Auto) 0.1 % (0-1) Neutrophils (%) (Auto) 71.0 % (40.0-77.0) Lymphocytes (%) (Auto) 21.2 % (21.0-51.0) Monocytes (%) (Auto) 7.4 % (3.0-13.0) Eosinophils (%) (Auto) 0.1 % (0.0-8.0) Basophils (%) (Auto) 0.2 % (0.0-5.0) Neutrophils # (Auto) 6.5 K/uL (1.8-7.7) Lymphocytes # (Auto) 1.9 K/uL (1.0-4.8) Monocytes # (Auto) 0.7 K/uL (0.1-1.0) Eosinophils # (Auto) 0.01 K/uL (0.00-0.70) Basophils # (Auto) 0.02 K/uL (0.00-0.20) Absolute Immature Granulocyte (auto 0.01 K/uL (0-1) Nucleated Red Blood Cells 0.0 % (0.0-0.19) Red Blood Cell Morphology See comments Sodium Level 142 mmol/L (136-145) Potassium Level 3.8 mmol/L (3.5-5.1) Chloride Level 104 mmol/L (101-111) Carbon Dioxide Level 28 mmol/L (21-32) Blood Urea Nitrogen 16 mg/dL (7-18) Creatinine 0.6 mg/dL (0.5-1.0) Glomerular Filtration Rate Calc 97 mL/min (>90) Random Glucose 113 mg/dL (70-105) H Total Calcium 8.7 mg/dL (8.5-10.1) Total Bilirubin 0.3 mg/dL (0.2-1.0) Direct Bilirubin 0.2 mg/dL (0.0-0.3) Aspartate Amino Transf (AST/SGOT) 24 U/L (10-37) Alanine Aminotransferase (ALT/SGPT) 23 U/L (12-78) Alkaline Phosphatase 144 U/L (50-136) H Troponin I High Sensitivity 5 ng/L (4-50) Total Protein 7.3 g/dL (6.0-8.3) Albumin 3.7 g/dL (3.5-5.0) Urine Color COLORLESS (YELLOW) Urine Appearance CLEAR (CLEAR) Urine pH 7.0 (5.0-8.0) Urine Specific [place] 1.002 (1.001-1.031) Urine Protein NEGATIVE mg/dL (NEGATIVE) Urine Glucose (UA) NEGATIVE mg/dL (NEGATIVE) Urine Ketones NEGATIVE mg/dL (NEGATIVE) Urine Occult Blood NEGATIVE (NEGATIVE) Urine Nitrate NEGATIVE (NEGATIVE) Urine Bilirubin NEGATIVE mg/dL (NEGATIVE) Urine Urobilinogen 0.2 mg/dL (0.2-1.0) Urine Leukocyte Esterase NEGATIVE [place]/uL Labs Reviewed?: Yes EKG Comment: EKG Interpretation: Time Reviewed: 2118 Normal sinus rhythm Ventricular rate:57 bpm PA Interval: 156 ms QRS duration: [address] segment elevation or depression. Clinical impression: Sinus bradycardia EKG Reviewed and interpreted by Dr. Yuriy Ventura CT Scan Comment: PATIENT: NAZARIO NATH MR#: [id number] : 1955 SEX: F AGE: 69 LOCATION: ED ORDER 20 STATUS: [facility] REPORT#: [id number] SERVICE 18 REASON: headache, severe (posterior) ORDERING PHYSICIAN: SAL HARVEY PROCEDURE: HEAD WO - CT HEAD/BRAIN W/O CONTRAST EXAM: CT Head Without IV contrast. CLINICAL HISTORY: headache, severe (posterior) TECHNIQUE: Axial computed tomography images of the head/brain without intravenous contrast. COMPARISON: None provided. FINDINGS: BRAIN: No evidence of acute hemorrhage. No mass lesion. No CT evidence for acute territorial infarct. No midline shift or extra-axial collections. VENTRICLES: No hydrocephalus. ORBITS: The orbits are unremarkable. SINUSES AND MASTOIDS: The paranasal sinuses and mastoid air cells are clear. BONES: No fracture. SOFT TISSUES: Unremarkable. IMPRESSION: No acute intracranial abnormality. /[place] DICTATED BY: CHAZ JANSEN MD DATE: 07/01/252350 ELECTRONICALLY SIGNED BY: CHAZ JANSEN MD DATE: 07/01/252350 ED Course ED Course Orders Procedure Category Date Status Time Cbc With Differential LAB 07/01/25 Complete 21:14 Basic Metabolic Panel LAB 07/01/25 Complete 21:14 Hepatic Function Panel LAB 07/01/25 Complete 21:14 Urinalysis Profile LAB 07/01/25 Complete 21:14 Troponin I High LAB 07/01/25 Complete Sensitivity 21:14 12 Lead Ekg Tracing- EKG 07/01/25 Complete Technical 21:14 Ct Head/Brain W/O CT 07/01/25 Resulted Contrast 22:19 Acetaminophen With PHA 07/01/25 Complete Codeine (Tylenol-Code 22:30 Current Medications Medications (Trade) Dose Ordered Sig/[place] Route PRN Reason Start Time Stop Time Status Last Admin Dose Admin Acetaminophen/ Codeine Phosphate (TYLenol-coDEINE TAB) 1 tab ONCE ONCE PO 07/01/25 22:30 07/01/25 22:31 DC 07/02/25 00:12 Vital Signs Date Time Temp Pulse Resp B/P (MAP) Pulse Ox O2 Delivery O2 Flow Rate FiO2 07/02/25 00:00 98.2 53 20 142/73 99 Room Air* 0 21 07/01/25 20:53 98.1 73 20 203/101 99 Room Air Patient arrived to the ED with anxiety and elevated blood pressure reading of 203/103. She is hyperverbal and restles (likely due to prednisone use). When blood pressure was repeated 30 minutes later while she was not talking and seated still it had decreased to 116/66. Twelve lead EKG reflects a sinus rhythm without ST-elevation or depression. She had a CT scan of the brain which was negative for hemorrhage. Laboratory findings as noted below. UA is clear. There is no elevation of WBCs. HGB 11.6, glucose 1, ALP 144, and troponin negative. She received one dose Tylenol No. 3 for her neck pain and she states pain now 09/27. She is eating a meal of chips and offers no further complaints. She is currently calm and cooperative. I discussed findings with patient and family member. She will need to follow up with her PCP for re-evaluation of rash, blood pressure readings, and anxiety. Medical Decision Making MDM MDM: Differential diagnosis: CVA, hypertensive emergency, metabolic encephalopathy, manic episode, anxiety Rationale: Tests considered and ordered secondary to shared decision making include: CT, EKG, lab Previous outside records reviewed: Old ER visits. Risk of complication and/or morbidity or mortality of patient management: None Medications-Per medication reconciliation Need for hospitalization: Patient does not meet criteria for hospitalization. Need for emergency major/minor surgery: No There are no social concerns with this patient. Prescription drug management: Stopped prednisone. Prescriptions will include symptomatic care Patient's prior external medical records from other ER visits were reviewed by me as indicated. Prior testing and results from previous visits were reviewed. Prior tests were taken into account with medical decision making and resource utilization, independent historian/historians were used to obtain complete medical history. I independently interpreted the test that were performed, results were reviewed by me and considered findings on radiology if ordered. Medical management and examination interpretation discussions were had by me with other qualified healthcare professionals as indicated for the patient's care. DX & DISP Disposition: Discharge Departure Impression: Primary Impression: Headache Additional Impressions: Anxiety, Hypertension, Neck muscle strain Condition: Stable Additional Instructions: You were evaluated today for headache and neck discomfort. Your vital signs wer e stable after repeat checks. Your blood pressure was initially elevated but returned to normal range once we are calm and seated. A CT scan of your brain showed no signs of bleeding or stroke. Your EKG showed a normal sinus rhythm/sinus bradycardia with no heart damage or arrhythmia. Your labs are unremarkable. There are no signs of infection or other acute problem. You rece ived a dose of Tylenol No. For pain with improvement of symptoms. Your headache and anxiety are most likely related to tension and stress. Your blood pressure elevation was likely secondary to anxiety at presentation. At home you should continue to rest, hydrate well, and avoid excess caffeine or stress when possible. Continue the prednisone and hydroxyzine. Use Tylenol as needed for discomfort. Avoid any additional sedating medications or alcohol. Recheck your blood pressure at home once daily for the next few days you have a monitor. Keep a record to show your primary care provider. If readings are consistently greater than 160/90 notify your doctor. Follow up later today with your primary care provider. STOP PREDNISONE as this is most likely increasing anxiety and agitation. Bring your medication list,including new prescription, to ensure no interactions or duplication. Discussed your recent rash, ongoing anxiety and your blood pressures. Return to the ER immediately if you develop: Worsening or severe headache, especially with vomiting or confusion. Sudden weakness, slurred speech, or facial drooping. Chest pain, shortness of breath, or swelling in your legs. New or worsening rash, fever or allergic reaction. Inability to control blood pressure or new confusion/agitation. Referrals: MATEO TURNER MD (PCP) Time of Disposition: 01:22 SAL HARVEY Jul 01, 2025 21:15
--- NOTE | 2025-07-01 21:27 | EKG ---
[facility] Test Date: 2025-07-01 Test Time: 21:19:42 Pat Name: NAZARIO NATH Department: ED Room: Gender: F [employer]: [id number] : 1955 Requested By: SAL HARVEY Order Number: [id number] Reading MD: Maile Polanco Measurements Intervals [place] Rate: 57 P: 4 OR: 156 QRS: -34 QRSD: 101 T: 15 QT: 466 QTc: 453 Interpretive Statements Sinus rhythm Inferior infarct, old Compared to ECG 06/19/2025 19:57:35 Myocardial infarct finding now present Left-axis deviation no longer present Electronically Signed On 07-02-2025 10:25:54 CDT by Maile Polanco Please click the below link to view image of tracing.
[2025-07-01 21:45] LABS: IMMATURE GRANULOCYTE ABSOLUTE 0.01 K/uL (0-1); NUCLEATED RED BLOOD CELLS 0.0 % (0.0-0.19); PLATELET COUNT (AUTO) 235 K/uL (130-400); RED BLOOD CELL COUNT(AUTO) 4.23 MIL/uL (4.00-5.50); RED CELL DISTRIBUTION WIDTH 14.5 % (11.0-15.5); WHITE BLOOD COUNT (AUTO) 9.1 K/uL (4.8-10.8)
[2025-07-01 22:01] LABS: CREATININE 0.6 mg/dL (0.5-1.0); GLOMERULAR FILTR. RATE CALC 97.0 mL/min (>90); GLUCOSE,RANDOM 113.0 mg/dL (70-105); SODIUM SERUM 142.0 mmol/L (136-145); UREA NITROGEN, BLOOD 16.0 mg/dL (7-18)
[2025-07-01 22:05] LABS: ASPARTATE AMINOTRANSFERASE 24.0 U/L (10-37); TOTAL PROTEIN, SERUM 7.3 g/dL (6.0-8.3)
--- NOTE | 2025-07-01 22:51 | HMCIMG ---
EXAM: CT Head Without IV contrast. CLINICAL HISTORY: headache, severe (posterior) TECHNIQUE: Axial computed tomography images of the head/brain without intravenous contrast. COMPARISON: None provided. FINDINGS: BRAIN: No evidence of acute hemorrhage. No mass lesion. No CT evidence for acute territorial infarct. No midline shift or extra-axial collections. VENTRICLES: No hydrocephalus. ORBITS: The orbits are unremarkable. SINUSES AND MASTOIDS: The paranasal sinuses and mastoid air cells are clear. BONES: No fracture. SOFT TISSUES: Unremarkable. IMPRESSION: No acute intracranial abnormality. /[place]
--- NOTE | 2025-07-02 00:09 | NUR ---
PATIENT CARE ASSUMED AT THIS TIME. PATIENT PLACED IN ER ROOM 11.
[2025-07-02 01:04] LABS: APPEARANCE,URINE CLEAR (CLEAR); GLUCOSE, URINE (UA) NEGATIVE (NEGATIVE); LEUKOCYTE ESTERASE ,URINE NEGATIVE Leu/uL (NEGATIVE); NITRATE,URINE NEGATIVE (NEGATIVE); OCCULT BLOOD,URINE NEGATIVE (NEGATIVE)
[2025-07-02 01:08] LABS: ADD UA MICROSCOPIC NO
[2025-07-02 01:23] VITALS: BP 144/72; PULSE 59; RESP 20; TEMP 98.4; O2SAT 99
== END 2025-07-02 01:34 | disposition home or self-care (01) ==
LOC: EDH 20:51
DX: S16.1XXA Strain of muscle, fascia and tendon at neck level, initial encounter (principal); R51.9 Headache, unspecified; F41.9 Anxiety disorder, unspecified; F32.A Depression, unspecified; I10 Essential (primary) hypertension; Z85.42 Personal history of malignant neoplasm of other parts of uterus; Z79.899 Other long term (current) drug therapy; Z79.2 Long term (current) use of antibiotics; X58.XXXA Exposure to other specified factors, initial encounter; Y93.89 Activity, other specified; Y92.89 Other specified places as the place of occurrence of the external cause; Y99.8 Other external cause status
CPT/HCPCS: 36415; 70450; 80048; 80076; 81003; 84484; 85025; 93005; 99284

== ENCOUNTER 2025-07-11 18:48 | Emergency (ER) | payer OTHER ==
[~2025-07-11] VITALS: Ht 152.4 cm; Wt 56.7 kg
--- NOTE | 2025-07-11 19:45 | ERN ---
ED Note History of Present Illness Stated Complaint: PAIN TO ENTIRE BODY Chief Complaint: Other Problems Time Seen by MD: 19:28 Dictation: 69-year-old female with surgical history of spine surgery who presented to the ER complaining of chronic pain from head to toe. Stated that she is pending to see a neurosurgeon for evaluation. Patient has been taking Tylenol 3 without improvement. Allergies: Coded Allergies: No Known Drug Allergies (Unverified Allergy, Unknown, 05/17/17) Home Meds Active Scripts Lidocaine (Lidocaine) 4 % Adh..patch, 1 PATCH TP DAILY for 10 Days, #10 PATCH 0 Refills Prov:DOTTIE DELGADO MD 07/11/25 Acetaminophen (Tylenol) 500 Mg Tab, 1 TAB PO Q6HPRN PRN for pain or fever for 10 Days, #30 TAB 0 Refills Prov:DOTTIE DELGADO MD 07/11/25 Ibuprofen (Ibuprofen) 600 Mg Tablet, 1 TAB PO TID for pain for 10 Days, #30 TAB 0 Refills with food Prov:DOTTIE DELGADO MD 07/11/25 Hydroxyzine HCl (Hydroxyzine HCl) 25 Mg Tablet, 1 TAB PO BID for itching for 10 Days, #20 TAB 0 Refills Prov:ANSLEY SINGH MD 07/01/25 Prednisone (Prednisone) 20 Mg Tablet, 1 TAB PO AD for 6 Days, #14 TAB 0 Refills TAKE 1 TAB BY MOUTH THREE TIMES PER DAY X3 DAYS, THEN TAKE 1 TAB BY MOUTH TWICE A DAY X2 DAYS, THEN TAKE 1 TAB BY MOUTH ONCE A DAY X1 DAY. Prov:ANSLEY SINGH MD 07/01/25 Amoxicillin (Amoxicillin) 500 Mg Capsule, 1 CAP PO TID for 10 Days, #30 CAP 0 Refills Prov:JUDD HAMMOND MD 06/19/25 Nitrofurantoin/Nitrofuran Mac (Macrobid) 100 Mg Cap, 1 CAP PO BID for 5 Days, #10 CAP 0 Refills Prov:THAD GERBER DO 08/11/24 Zolpidem Tartrate (Ambien) 5 Mg Tablet, 1 TAB PO HSPRN PRN for sleep for 14 Days, #14 TAB 0 Refills Prov:THAD GERBER DO 08/11/24 Sulfamethoxazole/Trimethoprim (Bactrim Ds Tablet) 800 Mg-160 Mg Tablet, 1 TAB PO BID for 7 Days, #14 TAB Prov:CHAD DEL REAL MD 06/05/24 Ondansetron (Ondansetron Odt) 4 Mg Tab.rapdis, 4 MG PO TID for NAUSEA, #15 TAB Prov:NADINE MANUEL MD 07/26/22 Loperamide HCl (Loperamide) 2 Mg Capsule, 2 MG PO QID for LOOSE STOOL, #30 CAP Prov:NADINE MANUEL MD 07/26/22 Acetaminophen (Acetaminophen) 500 Mg Tablet, 1000 MG PO QID for FEVER, #50 TAB Prov:NADINE MANUEL MD 07/26/22 Pantoprazole Sodium (Protonix) 40 Mg Ectab, 40 MG PO DAILY for 30 Days, #30 TAB.EC Prov:MARCIA BAKER MD 07/25/22 Tramadol Hcl (Tramadol HCl) 50 Mg Tablet, 50 MG PO BID for 5 Days, #10 TAB Prov:ERICA ESTRELLA NP 09/06/21 Lorazepam (Ativan) 1 Mg Tablet, 1 MG PO DAILY for 2 Days, #2 TAB Take one or two as needed qHS Prov:TIESHA CHEEK MD 08/18/21 Reported Medications Cromolyn Sodium (Nasal Allergy [place]) 13 Ml [place].pump, 13 ML NS AM 05/17/17 Vitamin E Mixed (Vitamin E) 400 Unit Capsule, 400 UNIT PO AM, CAP 05/17/17 Tramadol Hcl (Tramadol HCl) 50 Mg Tablet, 50 MG PO Q4HPRN, TAB 05/17/17 Paroxetine HCl (Paroxetine HCl) 20 Mg Tablet, 20 MG PO AM, TAB 05/17/17 Oxybutynin Chloride (Ditropan Xl) 10 Mg Tab.er.24, 10 MG PO AM 05/17/17 Meclizine HCl (Meclizine HCl) 25 Mg Tablet, 25 MG PO TID, TAB 05/17/17 Loratadine (Loratadine) 10 Mg Capsule, 10 MG PO AM, CAP 05/17/17 Lisinopril/Hydrochlorothiazide (Lisinopril-Hctz 10-12.5 mg Tab) 1 Each Tablet, 1 EACH PO AM, TAB 05/17/17 Gabapentin (Gabapentin) 600 Mg Tablet, 600 MG PO TID, TAB 05/17/17 Ezetimibe (Ezetimibe) 10 Mg Tablet, 10 MG PO AM, TAB 05/17/17 Atorvastatin Calcium (Atorvastatin Calcium) 40 Mg Tablet, 40 MG PO AM, TAB 05/17/17 Metoprolol Succinate (Metoprolol Succinate) 50 Mg Tab.er.24h, 50 MG PO AM, TAB 05/17/17 Alprazolam (Alprazolam) 2 Mg Tablet, 2 MG PO BID, TAB 05/17/17 Past Medical History Past Medical History: Hypertension, Unknown Additional Past Medical Hx: uterine ca; CHRONIC BACK PAIN, poor historian of health Surgical History: Unknown Surgical History Other: BACK SX Family History: Negative Social History: Negative, Lives with family History: Not Applicable Review of System Dictation NEGATIVE EXCEPT PER HPI Constitutional: Negative for fever,chills, and weight loss Eyes: Negative for injury, pain,redness, and discharge ENT: Negative for injury,pain or swelling Cardiovascular: denies chest pain, palpitations, and edema Respiratory: Negative for shortness of breath, cough, and wheezing, Abdomen/GI: Negative for abdominal pain, nausea, vomiting, diarrhea, and constipation Back: Chronic back pain : Negative for injury, bleeding and discharge MS/Extremity: Negative for injury and deformity Skin: Negative for rash, and discoloration Neuro: Negative for headache, weakness, numbness, tingling, and seizure Psych: Negative for suicide ideation, homicidal ideation, and hallucinations Initial Vital Sign VS Vital Signs Date Time Temp Pulse Resp B/P (MAP) Pulse Ox O2 Delivery O2 Flow Rate FiO2 07/11/25 19:26 97.3 72 16 117/61 100 Room Air Physical Exam Dictation General: awake, alert, NAD Head/Face: Normocephalic, atraumatic Eyes: PERRL, EOMI, vision at baseline ENT: oral cavity clear, TMs clear, no signs of infection Neck: Trachea midline, supple, no nuchal rigidity Cardiovascular: RRR, normal S1/S2, No MRGs, no JVD Respiratory: CTAB, no respiratory distress, No rales or wheezes Abdomen: Soft , no tender Skin: Warm, dry, normal turgor, no rash MS/Extremity: Pulses equal, no cyanosis, neurovascular intact, FROM Neuro: COAx4, GCS 15, strength 5/5, CN 2-12 intact, normal cerebellar exam, normal gait, Psych: Normal behavior, mood, and affect normal ED Course ED Course Orders Procedure Category Date Status Time Ketorolac PHA 07/11/25 Complete Tromethamine 15mg/Ml 20:00 Acetaminophen 500mg PHA 07/11/25 Complete Tab (Tylenol 500mg T 20:00 Lidocaine (Lidocaine PHA 07/11/25 Complete Patch 4%) 20:00 Current Medications Medications (Trade) Dose Ordered Sig/[place] Route PRN Reason Start Time Stop Time Status Last Admin Dose Admin Acetaminophen (TYLenol 500MG TAB) 500 mg ONCE ONCE PO 07/11/25 20:00 07/11/25 20:01 DC Ketorolac Tromethamine (toRADol) 15 mg ONCE ONCE IM 07/11/25 20:00 07/11/25 20:01 DC Lidocaine (Lidocaine Patch 4%) 1 each ONCE ONCE TP 07/11/25 20:00 07/11/25 20:01 DC Vital Signs Date Time Temp Pulse Resp B/P (MAP) Pulse Ox O2 Delivery O2 Flow Rate FiO2 07/11/25 19:26 97.3 72 16 117/61 100 Room Air Medical Decision Making MDM . Cervical Radiculopathy Muscle strain Chronic back pain Opioid abuse -ordered ketorolac 15 mg IM -acetaminophen 500 mg on -lidocaine patch to be applied to the cervical area. Patient he will be sent on oral pain medication It is my impression with the patient chronic pain could be due to cervical radiculopathy, muscle strain. I recommended the patient to follow up with the PCP and make appointment with the neurosurgeon as outpatient for further evaluation an MRI of spine. DX & DISP Disposition: Discharge Departure Impression: Primary Impression: Neck muscle strain Additional Impression: Radiculopathy Condition: Stable Scripts Lidocaine (Lidocaine) 4 % Adh..patch 1 PATCH TP DAILY for 10 Days, #10 PATCH 0 Refills Prov: DOTTIE DELGADO MD 07/11/25 Acetaminophen (Tylenol) 500 Mg Tab 1 TAB PO Q6HPRN PRN for pain or fever for 10 Days, #30 TAB 0 Refills Prov: DOTTIE DELGADO MD 07/11/25 Ibuprofen (Ibuprofen) 600 Mg Tablet 1 TAB PO TID for pain for 10 Days, #30 TAB 0 Refills with food Prov: DOTTIE DELGADO MD 07/11/25 Additional Instructions: RETURN TO ER FOR ANY ACUTE OR WORSENING SYMPTOMS. FOLLOW-UP IN 1-2 DAYS WITH PRIMARY PROVIDER FOR RECHECK OF TODAY'S SYMPTOMS. Referrals: MARAL DUONG MD (PCP) DOTTIE DELGADO MD Jul 11, 2025 19:45
[2025-07-11] MEDS ORDERED: ACET-66 PO (19:50)
[2025-07-11] MEDS ORDERED: LIDO1ADH82 TP (19:50)
[2025-07-11] MEDS ORDERED: IBUP-1492 PO (19:50)
[2025-07-11 20:56] VITALS: BP 121/65; PULSE 74; RESP 16; TEMP 97.4; O2SAT 100
[2025-07-11] MEDS: LIDOCAINE 4% ADH..PATCH TP ONE (21:13)
== END 2025-07-11 21:19 | disposition home or self-care (01) ==
LOC: EDH 18:48
DX: S16.1XXA Strain of muscle, fascia and tendon at neck level, initial encounter (principal); M54.12 Radiculopathy, cervical region; G89.29 Other chronic pain; I10 Essential (primary) hypertension; Z79.1 Long term (current) use of non-steroidal anti-inflammatories (NSAID); Z85.42 Personal history of malignant neoplasm of other parts of uterus; Z79.899 Other long term (current) drug therapy; M54.9 Dorsalgia, unspecified
CPT/HCPCS: 99283; 96372; J1885

== ENCOUNTER 2025-08-02 21:12 | Emergency (ER) | payer OTHER ==
[~2025-08-02] VITALS: Ht 152.4 cm; Wt 55.8 kg
[~2025-08-02 21:12] MED LIST changes: +IBUP-1492 PO; +LIDO1ADH82 TP
--- NOTE | 2025-08-02 22:05 | ERN ---
ED Note History of Present Illness Stated Complaint: NECK PAIN, TROUBLE BREATHING Chief Complaint: Multiple Complaints Time Seen by MD: 21:47 Dictation: Patient is a 69-year-old female who presented with multiple complaints including neck pain chronic 3-4 months, some left chest discomfort, pain, breathing problems chronic. States that she has been seen by PCP and receiving pain medication but did is not enough, mentioned that she has been receiving Toradol as outpatient, PCP does not want to prescribing something stronger for pain. Allergies: Coded Allergies: No Known Drug Allergies (Unverified Allergy, Unknown, 05/17/17) Home Meds Active Scripts Lidocaine (Lidocaine) 4 % Adh..patch, 1 PATCH TP DAILY for 10 Days, #10 PATCH 0 Refills Prov:DOTTIE DELGADO MD 07/11/25 Acetaminophen (Tylenol) 500 Mg Tab, 1 TAB PO Q6HPRN PRN for pain or fever for 10 Days, #30 TAB 0 Refills Prov:DOTTIE DELGADO MD 07/11/25 Ibuprofen (Ibuprofen) 600 Mg Tablet, 1 TAB PO TID for pain for 10 Days, #30 TAB 0 Refills with food Prov:DOTTIE DELGADO MD 07/11/25 Hydroxyzine HCl (Hydroxyzine HCl) 25 Mg Tablet, 1 TAB PO BID for itching for 10 Days, #20 TAB 0 Refills Prov:ANSLEY SINGH MD 07/01/25 Prednisone (Prednisone) 20 Mg Tablet, 1 TAB PO AD for 6 Days, #14 TAB 0 Refills TAKE 1 TAB BY MOUTH THREE TIMES PER DAY X3 DAYS, THEN TAKE 1 TAB BY MOUTH TWICE A DAY X2 DAYS, THEN TAKE 1 TAB BY MOUTH ONCE A DAY X1 DAY. Prov:ANSLEY SINGH MD 07/01/25 Amoxicillin (Amoxicillin) 500 Mg Capsule, 1 CAP PO TID for 10 Days, #30 CAP 0 Refills Prov:JUDD HAMMOND MD 06/19/25 Nitrofurantoin/Nitrofuran Mac (Macrobid) 100 Mg Cap, 1 CAP PO BID for 5 Days, #10 CAP 0 Refills Prov:THAD GERBER DO 08/11/24 Zolpidem Tartrate (Ambien) 5 Mg Tablet, 1 TAB PO HSPRN PRN for sleep for 14 Days, #14 TAB 0 Refills Prov:THAD GERBER DO 08/11/24 Sulfamethoxazole/Trimethoprim (Bactrim Ds Tablet) 800 Mg-160 Mg Tablet, 1 TAB PO BID for 7 Days, #14 TAB Prov:CHAD DEL REAL MD 06/05/24 Ondansetron (Ondansetron Odt) 4 Mg Tab.rapdis, 4 MG PO TID for NAUSEA, #15 TAB Prov:NADINE MANUEL MD 07/26/22 Loperamide HCl (Loperamide) 2 Mg Capsule, 2 MG PO QID for LOOSE STOOL, #30 CAP Prov:NADINE MANUEL MD 07/26/22 Acetaminophen (Acetaminophen) 500 Mg Tablet, 1000 MG PO QID for FEVER, #50 TAB Prov:NADINE MANUEL MD 07/26/22 Pantoprazole Sodium (Protonix) 40 Mg Ectab, 40 MG PO DAILY for 30 Days, #30 TAB.EC Prov:MARCIA BAKER MD 07/25/22 Tramadol Hcl (Tramadol HCl) 50 Mg Tablet, 50 MG PO BID for 5 Days, #10 TAB Prov:ERICA ESTRELLA NP 09/06/21 Lorazepam (Ativan) 1 Mg Tablet, 1 MG PO DAILY for 2 Days, #2 TAB Take one or two as needed qHS Prov:TIESHA CHEEK MD 08/18/21 Reported Medications Cromolyn Sodium (Nasal Allergy [place]) 13 Ml [place].pump, 13 ML NS AM 05/17/17 Vitamin E Mixed (Vitamin E) 400 Unit Capsule, 400 UNIT PO AM, CAP 05/17/17 Tramadol Hcl (Tramadol HCl) 50 Mg Tablet, 50 MG PO Q4HPRN, TAB 05/17/17 Paroxetine HCl (Paroxetine HCl) 20 Mg Tablet, 20 MG PO AM, TAB 05/17/17 Oxybutynin Chloride (Ditropan Xl) 10 Mg Tab.er.24, 10 MG PO AM 05/17/17 Meclizine HCl (Meclizine HCl) 25 Mg Tablet, 25 MG PO TID, TAB 05/17/17 Loratadine (Loratadine) 10 Mg Capsule, 10 MG PO AM, CAP 05/17/17 Lisinopril/Hydrochlorothiazide (Lisinopril-Hctz 10-12.5 mg Tab) 1 Each Tablet, 1 EACH PO AM, TAB 05/17/17 Gabapentin (Gabapentin) 600 Mg Tablet, 600 MG PO TID, TAB 05/17/17 Ezetimibe (Ezetimibe) 10 Mg Tablet, 10 MG PO AM, TAB 05/17/17 Atorvastatin Calcium (Atorvastatin Calcium) 40 Mg Tablet, 40 MG PO AM, TAB 05/17/17 Metoprolol Succinate (Metoprolol Succinate) 50 Mg Tab.er.24h, 50 MG PO AM, TAB 05/17/17 Alprazolam (Alprazolam) 2 Mg Tablet, 2 MG PO BID, TAB 05/17/17 Past Medical History Past Medical History: Asthma, Hypertension, Unknown Additional Past Medical Hx: uterine ca; CHRONIC BACK PAIN, poor historian of health Surgical History: Hysterectomy, Unknown Surgical History Other: BACK SX Family History: Negative Social History: Negative, Lives with family History: Not Applicable Review of System Dictation NEGATIVE EXCEPT PER HPI Constitutional: Negative for fever,chills, and weight loss Eyes: Negative for injury, pain,redness, and discharge ENT: Negative for injury,pain or swelling, reports neck pain Cardiovascular: Left chest pain Respiratory: Breathing difficult Abdomen/GI: Negative for abdominal pain, nausea, vomiting, diarrhea, and constipation Back: Negative for injury and pain : Negative for injury, bleeding and discharge MS/Extremity: Negative for injury and deformity Skin: Negative for rash, and discoloration Neuro: Negative for headache, weakness, numbness, tingling, and seizure Psych: Negative for suicide ideation, homicidal ideation, and hallucinations Initial Vital Sign VS Vital Signs Date Time Temp Pulse Resp B/P (MAP) Pulse Ox O2 Delivery O2 Flow Rate FiO2 08/02/25 21:13 98.2 86 20 133/87 100 Room Air 08/02/25 22:33 0 21 Physical Exam Dictation General: awake, alert, NAD Head/Face: Normocephalic, atraumatic Eyes: PERRL, EOMI, vision at baseline ENT: oral cavity clear, TMs clear, no signs of infection Neck: Trachea midline, supple, no nuchal rigidity Cardiovascular: RRR, normal S1/S2, No MRGs, no JVD Respiratory: CTAB, no respiratory distress, No rales or wheezes Abdomen: Soft , no tender Skin: Warm, dry, normal turgor, no rash MS/Extremity: Pulses equal, no cyanosis, neurovascular intact, FROM Neuro: COAx4, GCS 15, strength 5/5, CN 2-12 intact, normal cerebellar exam, normal gait, Psych: Normal behavior, mood, and affect normal Results (Laboratory/Radiology) Laboratory/Radiology Laboratory Tests Test 08/02/25 22:23 White Blood Count 5.4 K/uL (4.8-10.8) Red Blood Count 4.16 MIL/uL (4.00-5.50) Hemoglobin 11.7 g/dL (12.0-16.0) L Hematocrit 37.9 % (36-48) Mean Corpuscular Volume 91.1 fL (79-99) Mean Corpuscular Hemoglobin 28.1 pg (27.0-33.0) Mean Corpuscular Hemoglobin Concent 30.9 g/dL (32.0-36.0) L Red Cell Distribution Width 14.3 % (11.0-15.5) Platelet Count 208 K/uL (130-400) Mean Platelet Volume 10.6 fL (7.5-10.5) H Nucleated Red Blood Cells 0.0 % (0.0-0.19) Sodium Level 139 mmol/L (136-145) Potassium Level 3.8 mmol/L (3.5-5.1) Chloride Level 104 mmol/L (101-111) Carbon Dioxide Level 29 mmol/L (21-32) Blood Urea Nitrogen 12 mg/dL (7-18) Creatinine 0.6 mg/dL (0.5-1.0) Glomerular Filtration Rate Calc 97 mL/min (>90) Random Glucose 84 mg/dL (70-105) Total Calcium 9.0 mg/dL (8.5-10.1) Troponin I High Sensitivity 6 ng/L (4-50) ED Course ED Course Orders Procedure Category Date Status Time Basic Metabolic Panel LAB 08/02/25 Complete 21:57 Troponin I High LAB 08/02/25 Complete Sensitivity 21:57 Cbc Without LAB 08/02/25 In Process Differential 21:57 12 Lead Ekg Tracing- EKG 08/02/25 Logged Technical 21:57 Chest 1vw RAD 08/02/25 Taken 21:57 Morphine 2mg Syg PHA 08/02/25 Complete (Morphine 2mg Syg) 22:00 Acetaminophen 325 Tab PHA 11/15/25 Complete (Tylenol 325mg Tab 22:00 Current Medications Medications (Trade) Dose Ordered Sig/[place] Route PRN Reason Start Time Stop Time Status Last Admin Dose Admin Acetaminophen (TYLenol 325MG TAB) 650 mg ONCE ONCE PO 08/02/25 22:00 08/02/25 22:05 DC Morphine Sulfate (morPHINE 2MG SYG) 2 mg ONCE ONCE IVP 08/02/25 22:00 08/02/25 22:05 DC Vital Signs Date Time Temp Pulse Resp B/P (MAP) Pulse Ox O2 Delivery O2 Flow Rate FiO2 08/02/25 22:33 98.2 79 20 136/70 96 Room Air* 0 21 08/02/25 21:13 98.2 86 20 133/87 100 Room Air Medical Decision Making MDM 69-year-old female who reports multiple complaints including chest pain, neck pain, difficult to breathe. Chest pain Neck pain Radiculopathy neck Possible pneumonia Ordered laboratory workup including CBC, BMP. Chest x-ray ordered Pain medication IV x1 given morphine Tylenol 650 mg oral given DX & DISP Disposition: AMA Departure Impression: Primary Impression: Neck muscle strain Additional Impression: Chest pain Condition: Against Medical Advice (Patient such as left against medical advice she also was yelling and medical/nursing staff.) Referrals: SELF,REFERRAL (PCP) DOTTIE DELGADO MD Aug 02, 2025 22:05
--- NOTE | 2025-08-02 22:20 | NUR ---
PT CARE ASSUMED AT THIS TIME
[2025-08-02 22:27] LABS: NUCLEATED RED BLOOD CELLS 0.0 % (0.0-0.19); PLATELET COUNT (AUTO) 208 K/uL (130-400); RED BLOOD CELL COUNT(AUTO) 4.16 MIL/uL (4.00-5.50); RED CELL DISTRIBUTION WIDTH 14.3 % (11.0-15.5); WHITE BLOOD COUNT (AUTO) 5.4 K/uL (4.8-10.8)
[2025-08-02 22:33] VITALS: BP 136/70; PULSE 79; RESP 20; TEMP 98.2; O2SAT 96
[2025-08-02 22:36] LABS: CREATININE 0.6 mg/dL (0.5-1.0); GLOMERULAR FILTR. RATE CALC 97.0 mL/min (>90); GLUCOSE,RANDOM 84.0 mg/dL (70-105); SODIUM SERUM 139.0 mmol/L (136-145); UREA NITROGEN, BLOOD 12.0 mg/dL (7-18)
--- NOTE | 2025-08-02 22:59 | NUR ---
PT PBSERVED TO BE ERRATIC IN BEHAVIOR AFTER ED RN ATTEMPTED TO MEDICATE PATIENT. PT REPORTED THE DESIRE TO LEAVE. PT EDCUATED ON THE IMPORTANCE OF COMPLETING MEDICAL EVALUATION AND RISKS OF LEAVING PRIOR TO PROVIDER ASSESSMENT. PT VERBILIZED UNDERSTANDING OF EDUCATION.
--- NOTE | 2025-08-02 23:02 | NUR ---
PT ELOPED ED. PT AMBULTORY, ALERT, NO SIGNS OF ACUTE DISTRESS NOTED. IV DISCONTINUED.
--- NOTE | 2025-08-02 23:11 | HMCIMG ---
EXAM: X-Ray Chest, 1 view. CLINICAL HISTORY: Chest discomfort. COMPARISON: None. FINDINGS: The lungs show no infiltrate or other acute findings. No pleural effusion or pneumothorax. The cardiomediastinal silhouette is within normal limits. No acute osseous abnormality. Orthopedic fixation hardware in the thoracic spine. IMPRESSION: No acute cardiopulmonary pathology is evident. Orthopedic fixation hardware in the thoracic spine. /[place]
--- NOTE | 2025-08-05 13:28 | EKG ---
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
== END 2025-08-02 23:00 | disposition left against medical advice (07) ==
LOC: EDH 21:12
DX: S16.1XXA Strain of muscle, fascia and tendon at neck level, initial encounter (principal); R07.89 Other chest pain; I10 Essential (primary) hypertension; J45.909 Unspecified asthma, uncomplicated; G89.29 Other chronic pain; Z79.899 Other long term (current) drug therapy; Z79.1 Long term (current) use of non-steroidal anti-inflammatories (NSAID); Z85.42 Personal history of malignant neoplasm of other parts of uterus; Z90.710 Acquired absence of both cervix and uterus; Z53.29 Procedure and treatment not carried out because of patient's decision for other reasons; X58.XXXA Exposure to other specified factors, initial encounter; Y93.89 Activity, other specified; Y92.89 Other specified places as the place of occurrence of the external cause; Y99.8 Other external cause status
CPT/HCPCS: 99285; 71045; 84484; 80048; 85027; 36415; 93005; J2270